=== PATIENT | male | born 1960 | race Caucasian/White ===

== ENCOUNTER → 2019-05-02 09:44 | Outpatient (CLI) | payer BC, SELFPAY ==
--- NOTE | ~2019-05-02 | XR_ITS ---
EXAMINATION: XR lumbar spine 6V w bending DATE: 05/02/2019 10:24 INDICATION: Low back pain TECHNIQUE: Anteroposterior, lateral in neutral, flexion and extension, and bilateral oblique views of the lumbar spine, and cone-down lateral view of the lumbosacral junction were obtained. COMPARISON: None. FINDINGS: There is no fracture. The vertebral body heights and alignment are normal. No laxity is pre sent with flexion or extension. There is mild loss of intervertebral disc space height in the lower l umbar spine. Small degenerative osteophytes project from the anterior endplates of multiple vertebral bodies. There is [id number] facet osteoarthritis of the lower lumbar spine. Surgical clips in the right upper quadrant are likely from prior cholecystectomy. IMPRESSION: 1. Mild lumbar spondylosis without acute findings. Reviewed, dictated and finalized at location A. 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
== END ==
PROVIDERS: PCP Physician Assistant; Visit Provider Physician Assistant
DX: M47.896 Other spondylosis, lumbar region (principal)
CPT/HCPCS: 72114

== ENCOUNTER 2019-08-15 10:22 | Outpatient (CLI) | payer BC, SELFPAY ==
[2019-08-15 10:40] LABS: Hematocrit 58.3 % (42.0-52.0); Hemoglobin 19.7 g/dL (14.0-18.0); Mean Corpuscular HGB Conc 33.8 g/dl (32-36); Mean Corpuscular Hemoglobin 30.6 pg (26-34); Mean Corpuscular Volume 90.7 fl (80-100); Mean Platelet Volume 10.1 fl (7.4-10.4); Platelet Count Result 196 k/mm3 (150-375); Red Blood Count 6.43 M/mm3 (4.6-6.20); Red Cell Distribution Width 12.6 % (11.5-14.5); White Blood Count 5.4 K/mm3 (4.5-10.0)
[2019-08-15 11:50] LABS: Alanine Aminotransferase 74 U/L (4-50); Albumin Level 4.7 g/dL (3.5-5.1); Alkaline Phosphatase 66 U/L (38-126); Aspartate Amino Transferase 69 U/L (17-59); Bilirubin,Total 0.7 mg/dL (0.2-1.3); Blood Urea Nitrogen 14 mg/dL (9-20); Calcium 9.4 mg/dL (8.4-10.2); Carbon Dioxide 32 mmol/L (22-30); Chloride 102 mmol/L (98-107); Cholesterol 218 mg/dL (0-200); Estimated Glomerular Filt Rate 48; Glucose 75 mg/dL (75-110); HDL Direct 35 mg/dL; Potassium 4.8 mmol/L (3.4-5.0); Sodium 140 mmol/L (137-145); Triglycerides 356 mg/dL (<150)
[2019-08-15 11:58] LABS: LDL Cholesterol Direct 51 mg/dL
[2019-08-15 12:18] LABS: Prostate Specific Antigen 1.7 ng/mL (< OR = 4.0)
[2019-08-18 12:07] LABS: Testosterone Total 146 ng/dL (250-1100)
== END 2019-08-15 10:23 | disposition home or self-care (01) ==
PROVIDERS: PCP Physician Assistant; Visit Provider Physician Assistant
DX: Z00.00 Encounter for general adult medical examination without abnormal findings (principal); E29.1 Testicular hypofunction; Z12.5 Encounter for screening for malignant neoplasm of prostate
CPT/HCPCS: 36415; 80053; 80061; 82607; 82746; 84153; 84402; 84403; 84443; 85027; G0103

== ENCOUNTER 2019-11-14 08:33 | Outpatient (CLI) | payer BC, SELFPAY ==
[2019-11-14 08:49] LABS: Hematocrit 53.4 % (42.0-52.0); Mean Corpuscular HGB Conc 33.7 g/dl (32-36); Mean Corpuscular Hemoglobin 30.9 pg (26-34); Mean Corpuscular Volume 91.6 fl (80-100); Mean Platelet Volume 10.1 fl (7.4-10.4); Platelet Count Result 175 k/mm3 (150-375); Red Blood Count 5.83 M/mm3 (4.6-6.20); Red Cell Distribution Width 14.2 % (11.5-14.5); White Blood Count 5.1 K/mm3 (4.5-10.0)
[2019-11-14 09:28] LABS: Iron 100 ug/dL (49-181)
[2019-11-14 09:37] LABS: Percent Iron Saturation 22 % (20-50)
== END 2019-11-14 08:34 | disposition home or self-care (01) ==
PROVIDERS: PCP Physician Assistant; Visit Provider Physician Assistant
DX: D58.2 Other hemoglobinopathies (principal)
CPT/HCPCS: 36415; 82728; 83540; 83550; 85027

== ENCOUNTER 2020-05-19 20:52 | Observation (INO) | payer BC, SELFPAY ==
--- NOTE | ~2020-05-19 | US_ITS ---
EXAMINATION: US renal BI DATE: 05/20/2020 10:59 INDICATION: Acute on chronic kidney injury TECHNIQUE: Multiple grayscale and Doppler ultrasound images of the kidneys were obtained. COMPARISON: None. FINDINGS: The right kidney measures 11.3 x 5.3 x 5.1 cm. The left kidney measures 13.6 x 6.4 x 6.0 cm . The kidneys demonstrate normal parenchymal echogenicity. There is moderate left hydronephrosis. The bladder is normal. IMPRESSION: 1. Moderate left hydronephrosis, consistent with known left ureteral stone. Reviewed, dictated and finalized at location A. ULTING GROUP ANALYST
--- NOTE | ~2020-05-19 | CT_ITS ---
EXAMINATION: CT abdomen pelvis wo con DATE: 05/19/2020 22:26 INDICATION: Left flank pain TECHNIQUE: Computed tomography (CT) of the abdomen and pelvis was performed without intravenous contr ast. The dose-length product (DLP) was 305.32 mGy-cm. Automated exposure control and iterative recons truction technique were employed. COMPARISON: 07/06/2015 FINDINGS: Minimal dependent atelectasis is present in the lung bases. The heart size is normal. The g allbladder is surgically absent. The liver is diffusely low in attenuation when compared with the spl een, consistent with hepatic steatosis. Punctate calcifications in an otherwise normal spleen likely represent healed granulomatous disease. The pancreas and adrenal glands are normal. There is a 5 mm s tone of the proximal left ureter which causes moderate hydronephrosis. There is a 2 mm nonobstructing stone of the left kidney. Cysts of the kidneys measure up to 3.5 cm on the left. No pathologically e nlarged abdominal or pelvic lymph nodes are identified. There is no free intraperitoneal gas or evide nce of bowel obstruction. Colonic diverticulosis is present without evidence of diverticulitis. A mod erate volume of colonic stool is present. There is mild lumbar spondylosis. IMPRESSION: 1. 5 mm stone in the proximal left ureter causing moderate hydronephrosis. 2. Nonobstructing left nephrolithiasis. Reviewed, dictated and finalized at location A. 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
--- NOTE | ~2020-05-19 | XR_ITS ---
EXAMINATION: XR abdomen/kub 1V EXAM DATE: 05/21/2020 08:42 INDICATION: Stone follow-up. TECHNIQUE: Frontal projection(s) of the abdomen for interpretation. Comparison is made to prior exami nation from 05/20/2020. FINDINGS: Previously suspected left ureteral stone now appears to be in an inferior calyx. This measu res about 6 mm. This finding has been indicated, marked on the examination for review, clinical corre lation. Left double-J ureteral stent is in position. Nonobstructive bowel gas pattern. IMPRESSION: Left inferior calyceal stone. Reviewed, dictated and finalized at location B. DAY DETECTOR OPERATOR
--- NOTE | ~2020-05-19 | XR_ITS ---
EXAMINATION: XR abdomen/kub 1V INDICATION: Left-sided kidney stones TECHNIQUE: Supine views of the abdomen were obtained on 2 radiographs. COMPARISON: CT, 03/18/2021 FINDINGS: There is a faint 5 mm calcification projecting just below the left L3 transverse process in the expected location of the ureteral stone described on the comparison CT. A phlebolith is noted in the right pelvis. A moderate volume of colonic stool is present. Cholecystectomy clips are noted. IMPRESSION: 1. Faint calcification projecting just below the left L3 transverse process possibly reflecting the k nown left proximal ureteral stone. Reviewed, dictated and finalized at location A. ING AIDE IMPRESSION: 1. Faint calcification projecting just below the left L3 transverse process pos sibly reflecting the known left proximal ureteral stone.
--- NOTE | ~2020-05-19 | XR_ITS ---
EXAMINATION: XR retrograde pyelo w/stent LT EXAM DATE: 05/20/2020 12:59 INDICATION: Left-sided stone extraction. TECHNIQUE: Fluoroscopy used during XR retrograde pyelo w/stent LT performed by Dr. Marco Hilario MD. The DAP for this procedure was 428 radcm2 Cine run(s) available for review. FINDINGS: Probable identification of left proximal ureteral stone on the line haul owner operator image. Left ureter was cannulated and injected. Mild left hydronephrosis. A double-J ureteral stent was positioned.. Possib le identification of the stone adjacent to the stent. Correlate with procedure note. IMPRESSION: Fluoroscopy used during XR retrograde pyelo w/stent LT. Reviewed, dictated and finalized at location A. MOTIVE PRODUCT SPECIALIST
[2020-05-19 20:56] VITALS: BP 132/80; PULSE 79; RESP 16; TEMP 37; O2SAT 98
--- NOTE | 2020-05-19 21:15 | PC.NURSE ---
pt states he isn't able to give urine sample at this time bc he went before he came. states he will attempt. urinal at bedside.
[2020-05-19 21:20] LABS: Basophils Percent Auto 0.3 % (0.2-1.2); Eosinophils Absolute Auto 0.3 K/mm3 (0-0.3); Eosinophils Percent Auto 2.6 % (0-4.4); Hematocrit 42.1 % (42.0-52.0); Hemoglobin 14.5 g/dL (14.0-18.0); Immature Granulocyte Absolute 0.04 K/mm3 (0.00-0.031); Immature Granulocyte Percent A 0.4 % (0-0.5); Lymphocytes Absolute Auto 1.23 K/mm3 (0.9-3.2); Lymphocytes Percent Auto 12.1 % (18.3-44.2); Mean Corpuscular HGB Conc 34.4 g/dl (32-36); Mean Corpuscular Hemoglobin 31.9 pg (26-34); Mean Corpuscular Volume 92.7 fl (80-100); Mean Platelet Volume 10.5 fl (7.4-10.4); Monocytes Percent Auto 9.6 % (2.6-8.5); Neutrophils Absolute Auto 7.6 K/mm3 (1.3-6.7); Platelet Count Result 171 k/mm3 (150-375); Red Blood Count 4.54 M/mm3 (4.6-6.20); Red Cell Distribution Width 12.1 % (11.5-14.5); White Blood Count 10.1 K/mm3 (4.5-10.0)
[2020-05-19 21:31] LABS: Anion Gap 7 mmol/L (8-16); Blood Urea Nitrogen 27 mg/dL (9-20); Calcium 8.7 mg/dL (8.4-10.2); Carbon Dioxide 25 mmol/L (22-30); Chloride 104 mmol/L (98-107); Estimated CRCL calculation 26 ml/min; Estimated Glomerular Filt Rate 21; Glucose 111 mg/dL (75-110); Potassium 4.3 mmol/L (3.4-5.0); Sodium 136 mmol/L (137-145)
[2020-05-19] MEDS: MORPHINE SULFATE (*CRX) 4 MG/ML INJ IV PUSH (21:35)
[2020-05-19] MEDS: ONDANSETRON INJ 4 MG/2 ML VIAL IV PUSH ×2 (21:35→23:28)
[2020-05-19] MEDS: SODIUM CHLORIDE 0.9% IV 1,000 ML 999 ML IV CONT ×2 (21:35→23:20)
[2020-05-19 21:37] VITALS: BP 115/75; PULSE 85; RESP 16; O2SAT 98
--- NOTE | 2020-05-19 22:00 | PC.NURSE ---
pt states he gets anxiety when getting CT, doctor gave this rn verbal order for 0.25mg ativan IV STAT
--- NOTE | 2020-05-19 22:02 | ED.GENADULT ---
HPI - General Adult General Chief complaint: Urogenital-Male Stated complaint: left flank pain Time Seen by Provider: 05/19/20 21:21 History of Present Illness HPI narrative: Patient 59-year-old gentleman who presents the emergency department with chief complaint of left flank pain. Patient states that he has history of kidney stones and has been able to pass them before in the past states that he started having flank pain several days ago and today it got worse. Patient states that this evening he was unable to tolerate the pain reports has had some nausea with it. Related Data Home Medications Medication Instructions Recorded Confirmed arginine (L-arginine) 500 mg tablet 3,150 mg PO DAILY tablet 08/23/19 ascorbic acid (vitamin C) 250 mg 250 mg PO BID 08/23/19 tablet doxycycline hyclate 100 mg capsule 100 mg PO DAILY 08/23/19 ginseng 500 mg tablet 1,500 mg PO tablet 08/23/19 glucosamine 750 mg-chondroitin 600 1 tablet PO BID 08/23/19 mg chewable tablet magnesium oxide 400 mg (241.3 mg 400 mg PO DAILY 08/23/19 magnesium) tablet multivitamin 1 cap PO DAILY 08/23/19 omega-3 fatty acids-fish oil 360 1 cap PO BID 08/23/19 mg-1,200 mg capsule Allergies Allergy/AdvReac Type Severity Reaction Status Date / Time No Known Allergies Allergy Verified 08/15/19 09:40 Review of Systems Review of Systems: Narrative: A 10 system review of systems was completed on the patient and is negative except for what is stated in the HPI. Nursing and ancillary documentation was reviewed. [facility] Family History Family History Father Family history of mental disorder Other Family history of cardiovascular disease Family history of malignant neoplasm Social History Social History Smoking status: Never smoker Second hand tobacco smoke exposure: No Alcohol intake: current Substance use: never Comments Patient has past medical history significant for anxiety and history of kidney stones Exam Narrative: Exam Narrative: GENERAL: Well-appearing, well-nourished, and in no acute distress. HEAD: Normocephalic, atraumatic. EYES: PERRLA and EOMI. ENT: Nares clear, no rhinorrhea or epistaxis. Mucous membranes moist. NECK: Supple. CHEST: Clear to auscultation. No respiratory distress. HEART: Regular rate and rhythm. No murmur heard. Normal peripheral pulses. ABDOMEN: Soft, nontender, nondistended, normal active bowel sounds. EXTREMITIES: Normal range of motion. No edema. SKIN: Warm, dry, no rash. NEURO: No focal deficits. Alert and oriented x3. PSYCH: Normal mood and affect. Course Vital Signs Vital signs: Vital Signs Temperature 37.0 C 05/19/20 20:56 Pulse Rate 79 05/19/20 20:56 Respiratory Rate 16 05/19/20 20:56 Blood Pressure 132/80 05/19/20 20:56 Pulse Oximetry 98 05/19/20 20:56 Temperature 37.0 C 05/19/20 20:56 Pulse Rate 85 05/19/20 22:52 Respiratory Rate 16 05/19/20 22:52 Blood Pressure 115/75 05/19/20 22:52 Pulse Oximetry 98 05/19/20 22:52 Medical Decision Making Vital Signs Vital Signs: Vital Signs Temperature 37.0 C 05/19/20 20:56 Pulse Rate 79 05/19/20 20:56 Respiratory Rate 16 05/19/20 20:56 Blood Pressure 132/80 05/19/20 20:56 Pulse Oximetry 98 05/19/20 20:56 Temperature 37.0 C 05/19/20 20:56 Pulse Rate 85 05/19/20 22:52 Respiratory Rate 16 05/19/20 22:52 Blood Pressure 115/75 05/19/20 22:52 Pulse Oximetry 98 05/19/20 22:52 Lab Data Result diagrams: 05/19/20 21:13 05/19/20 21:13 Labs: Lab Results 05/19/20 05/19/20 05/19/20 Range/Units 21:13 21:13 22:33 WBC 10.1 H (4.5-10.0) K/mm3 RBC 4.54 L (4.6-6.20) M/mm3 Hgb 14.5 D (14.0-18.0) g/dL Hct 42.1 (42.0-52.0) % MCV 92.7 (80-100) fl MCH 31.9 (26-34) pg MCHC 34.4
[2020-05-19] MEDS: LORazepam INJ (*CRX) 2 MG/ML VIAL 0.5 MG IV PUSH (22:09)
--- NOTE | 2020-05-19 22:10 | PC.NURSE ---
pt states he still isnt able to urinate. pt educated on importance of urine. pt refused straight cath
--- NOTE | 2020-05-19 22:17 | PC.NURSE ---
pt to ct at this time
[2020-05-19 22:44] LABS: Add Urine Microscopic? NO; Appearance Urine Clear (Clear); Bilirubin Urine Negative (Negative); Blood Urine Negative (Negative); Color Urine Yellow (Yellow); Glucose Urine UA Negative (Negative); Ketones Urine Negative (Negative); Leukocyte Esterase Ur Negative LEU/UL (Negative); Nitrate Urine Negative (Negative); Protein Urine Negative (Negative); Specific Grav Ur 1.014 (1.001-1.035); Urobilinogen Urine Negative mg/dL (<2.0)
[2020-05-19 22:52] VITALS: BP 115/75; PULSE 85; RESP 16; O2SAT 98
[2020-05-19] MEDS: HYDROmorphone HCL INJ (*CRX) 1 MG/ML SYR IV PUSH (23:28)
[2020-05-19 23:44] VITALS: BP 115/75; PULSE 85; RESP 16; O2SAT 98
--- NOTE | 2020-05-19 23:50 | ADMGEN ---
This patient, Sam Valdez, was admitted to Medical Room 341-01. Patient/family oriented to hospital policies and general routines including ID bracelet, bed and alarms, visiting hours, pain management, procedures, bathroom and other care routines, personal items, smoking policy, room service/diet, and visiting hours. Information on how to activate the Rapid Response Team has been discussed. Patient/Family are encouraged to report perceived risks to care and to ask questions if they do not understand what they are told or what they should do.
[2020-05-19 23:56] VITALS: BMI 27.6
[2020-05-20] VITALS (9 sets, daily range): BP systolic 102–160; BP diastolic 46–90; PULSE 61–77; RESP 12–14; TEMP 36.4–36.8; O2SAT 94–100; BMI 27.6
[2020-05-20] MEDS: SODIUM CHLORIDE 0.9% IV 1,000 ML 125 ML IV CONT ×2 (00:24→09:00)
[2020-05-20 06:09] LABS: Basophils Percent Auto 0.3 % (0.2-1.2); Eosinophils Absolute Auto 0.2 K/mm3 (0-0.3); Hematocrit 37.9 % (42.0-52.0); Hemoglobin 12.4 g/dL (14.0-18.0); Immature Granulocyte Absolute 0.02 K/mm3 (0.00-0.031); Immature Granulocyte Percent A 0.3 % (0-0.5); Lymphocytes Absolute Auto 1.52 K/mm3 (0.9-3.2); Lymphocytes Percent Auto 20.5 % (18.3-44.2); Mean Corpuscular HGB Conc 32.7 g/dl (32-36); Mean Corpuscular Hemoglobin 31.2 pg (26-34); Mean Corpuscular Volume 95.5 fl (80-100); Monocytes Absolute Auto 0.7 K/mm3 (0.1-0.6); Monocytes Percent Auto 9.7 % (2.6-8.5); Neutrophils Percent Auto 67.2 % (45.5-73.1); Platelet Count Result 150 k/mm3 (150-375); Red Blood Count 3.97 M/mm3 (4.6-6.20); Red Cell Distribution Width 12.1 % (11.5-14.5); White Blood Count 7.4 K/mm3 (4.5-10.0)
[2020-05-20 06:22] LABS: Anion Gap 5 mmol/L (8-16); Blood Urea Nitrogen 27 mg/dL (9-20); Calcium 7.7 mg/dL (8.4-10.2); Carbon Dioxide 25 mmol/L (22-30); Chloride 108 mmol/L (98-107); Estimated CRCL calculation 30 ml/min; Estimated Glomerular Filt Rate 25; Glucose 100 mg/dL (75-110); Potassium 4.4 mmol/L (3.4-5.0); Sodium 138 mmol/L (137-145)
--- NOTE | 2020-05-20 08:17 | PM.IMHP ---
H&P: HPI History of Present Illness Date/Time: 05/20/20 05:17 Chief Complaint: I think I have a kidney stone Narrative: Sam Valdez is a 59 year old male with a past medical history, BPH and chronic kidney disease stage 3 who presented to the ER with left-sided flank pain. The patient reported that he the believes that he has another kidney stone. His last kidney stone was many years ago. He reports that he only drinks 2 bottles of water a day while he is at work. He reports that he has been having colicky left flank pain that has been intermittent for the last 4 days. His pain became so severe on Thursday that he dropped to his knees. At that time he decided to come into the ER for evaluation. He also reports having a temperature up to 101 over the last couple of days. He has been having some nausea but denies any vomiting. He has had decreased appetite. He has not noticed any changes in urinary frequency or urgency. He reports that he has not had any pain since he arrived to the medical floor around midnight. He thinks that he may have passed his kidney stone. He had gotten up to urinate a couple of times on his own and did not know he needed to strain his urine. He denies a history chronic kidney disease but upon review of prior labs the patient has had an elevated creatinine as far back as 2018. He does admit to having low testosterone and states that he stop taking testosterone supplements as it was causing him to have a elevated hemoglobin and it was not improving his fatigue symptoms he is still having daytime somnolence and fatigue. He does snore but has never been told that he stops breathing. He has never had a sleep study. Review of Systems Review of Systems: Narrative: 12 systems were reviewed with pertinent positives and negatives per HPI. Except as documented in the HPI, all other systems were reviewed and are negative. 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 He is not . His elderly parents live with him but her relatively healthy. He drinks alcohol only in moderation. He denies any tobacco or illicit substance use. Primary care provider: George Saenz NP Smoking status: Never smoker Second hand tobacco smoke exposure: No Alcohol intake: current Drinks per week: 1 Substance use: never Living arrangements: with family Occupation/Education: occupation Gender identity (if verbalized by the patient): Male Spiritual care concerns: No Meds Home Medications and Allergies Home Medications Medication Instructions Recorded Confirmed Type ascorbic acid (vitamin C) 250 mg 250 mg PO BID 08/23/19 05/19/20 History tablet glucosamine 750 mg-chondroitin 600 1 tablet PO BID 08/23/19 05/20/20 History mg chewable tablet multivitamin 1 cap PO DAILY 08/23/19 05/20/20 History omega-3 fatty acids-fish oil 360 1 cap PO BID 08/23/19 05/20/20 History mg-1,200 mg capsule tadalafil 5 mg tablet 5 mg PO DAILY PRN #90 tablet 12/14/19 05/20/20 Rx omeprazole 20 mg capsule,delayed 20 mg PO DAILY #90 cap 03/28/20 05/20/20 Rx release fenofibrate 160 mg tablet 160 mg PO DAILY #90 tablet 05/05/20 05/19/20 Rx tamsulosin 0.4 mg capsule 0.4 mg PO DAILY #90 cap 05/05/20 05/20/20 Rx dorzolamide-timolol 1 drp EACH EYE BID 05/19/20 05/20/20 History escitalopram oxalate 1
--- NOTE | 2020-05-20 11:12 | WPDURCON ---
Assessment and Plan Assessment and plan (1) Acute kidney injury superimposed on chronic kidney disease: Code(s): N17.9 - Acute kidney failure, unspecified; N18.9 - Chronic kidney disease, unspecified Status: Acute Assessment and Plan: Creatinine will need to be monitored after stent placement (2) Ureterolithiasis: Code(s): N20.1 - Calculus of ureter Status: Acute Assessment and Plan: Will be taken to the operating room today for cystoscopy with left stent placement. He understands risks of bleeding, infection, inability to place the stent. I feel this is necessary due to his elevated creatinine. Definitive stone management to follow. (3) Hydronephrosis of left kidney: Code(s): N13.30 - Unspecified hydronephrosis Status: Acute Urology Consult Note HPI Date Seen: 05/20/20 Requesting Physician: Mery Culp PA-C Primary Care Provider: George Saenz PA-C Consult Narrative Narrative: Sam Valdez is a 59 year old male who is a patient of my partner Dr. Salguero. He has a prior history of stone disease. This was several years ago and it passed on its own. Since Thursday he has had a left intermittent flank pain. He has not had nausea or vomiting. He has not had dysuria. He has no symptoms of urinary tract infection. He states on and a temperature 101? but this has not recurred since. A CT scan was performed here in the [place] [facility] last night. There is no official reading. I viewed myself. It shows some moderate left hydronephrosis with a mid to proximal ureteral stone. It looks to be about 6 mm. He has an elevated creatinine. He will be taken to the operating room today for a cystoscopy with left ureteral stent with definitive stone management to follow. He has just had a KUB and the stone is visible. Review of Systems Review of Systems: All systems reviewed & are unremarkable except as noted in HPI and below PMFSH Past Medical History Medical History (Updated 05/20/20 @ 11:26 by Marco Hilario MD) Hypercholesteremia Kidney stone Low testosterone in male Surgical History Surgical History (Updated 05/20/20 @ 08:21 by Lorin Haney DO) Hx of cholecystectomy Family History Family History Father Family history of mental disorder Grandparent Cerebrovascular accident Other Family history of cardiovascular disease Family history of malignant neoplasm Social History Social History (Updated 05/20/20 @ 08:19 by Lorin Haney DO) Social History: 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 He is not . His elderly parents live with him but her relatively healthy. He drinks alcohol only in moderation. He denies any tobacco or illicit substance use. Primary care provider: George Saenz NP Smoking status: Never smoker Second hand tobacco smoke exposure: No Alcohol intake: current Drinks per week: 1 Substance use: never Living arrangements: with family Occupation/Education: occupation Gender identity (if verbalized by the patient): Male Spiritual care concerns: No Meds Home Medications and Allergies Home Medications Medication Instructions Recorded Confirmed Type ascorbic acid (vitamin C) 250 mg 250 mg PO BID 08/23/19 05/19/20 History tablet glucosamine 750 mg-chondroitin 600 1 tablet PO BID 08/23/19 05/20/20 History mg chewable tablet multivitamin 1 cap PO DAILY 08/23/19 05/20/20 History omega-3 fatty acids-fish oil 360 1 cap PO BID 08/23/19 05/20/20 History mg-1,200 mg capsule tadalafil 5 mg tablet 5 mg PO DAILY PRN #90 tablet 12/14/19 05/20/20 Rx omeprazole 20 mg capsule,delayed 20 mg PO DAILY #90 cap 03/28/20 05/20/20 Rx release fenofibrate 160 mg tablet 160 mg PO DAILY #90 tablet 05/05/20 05/19/20 Rx tamsulosin 0.4 mg capsule 0.4 mg PO DAILY #90 cap 05/05/20 05/20/20 Rx dorzolamide-timolol 1 drp E
--- NOTE | 2020-05-20 11:49 | WPDANESEPP ---
Anes - Eval Pre Procedure Date/Time: 05/20/20 11:49 Pre Op Diagnosis: Acute kidney injury, ureterolithiasis Patient Data Age: 59 Gender: M Height: 6 ft Weight: 92.6 kg Last Vital Signs Temp 36.8 C 05/20/20 05:27 Pulse 62 05/20/20 05:27 Resp 12 05/20/20 05:27 BP 102/46 L 05/20/20 05:27 Pulse Ox 94 05/20/20 07:31 Allergies Allergy/AdvReac Type Severity Reaction Status Date / Time No Known Allergies Allergy Verified 05/19/20 23:54 Home Medications Medication Instructions Recorded Confirmed Type ascorbic acid (vitamin C) 250 mg 250 mg PO BID 08/23/19 05/19/20 History tablet glucosamine 750 mg-chondroitin 600 1 tablet PO BID 08/23/19 05/20/20 History mg chewable tablet multivitamin 1 cap PO DAILY 08/23/19 05/20/20 History omega-3 fatty acids-fish oil 360 1 cap PO BID 08/23/19 05/20/20 History mg-1,200 mg capsule tadalafil 5 mg tablet 5 mg PO DAILY PRN #90 tablet 12/14/19 05/20/20 Rx omeprazole 20 mg capsule,delayed 20 mg PO DAILY #90 cap 03/28/20 05/20/20 Rx release fenofibrate 160 mg tablet 160 mg PO DAILY #90 tablet 05/05/20 05/19/20 Rx tamsulosin 0.4 mg capsule 0.4 mg PO DAILY #90 cap 05/05/20 05/20/20 Rx dorzolamide-timolol 1 drp EACH EYE BID 05/19/20 05/20/20 History escitalopram oxalate 10 mg PO DAILY 05/20/20 05/19/20 History pravastatin 40 mg PO HS 05/20/20 05/20/20 History Laboratory Tests 05/19/20 05/19/20 05/19/20 21:13 21:13 22:33 WBC 10.1 K/mm3 H K/mm3 (4.5-10.0) RBC 4.54 M/mm3 L M/mm3 (4.6-6.20) Hgb 14.5 g/dL D g/dL (14.0-18.0) Hct 42.1 % % (42.0-52.0) MCV 92.7 fl fl (80-100) MCH 31.9 pg pg (26-34) MCHC 34.4 g/dl g/dl (32-36) RDW 12.1 % % (11.5-14.5) Plt Count 171 k/mm3 k/mm3 (150-375) MPV 10.5 fl H fl (7.4-10.4) Immature Gran % (Auto) 0.4 % % (0-0.5) Neut % (Auto) 75.0 % H % (45.5-73.1) Lymph % (Auto) 12.1 % L % (18.3-44.2) Evangeline % (Auto) 9.6 % H % (2.6-8.5) Eos % (Auto) 2.6 % % (0-4.4) Baso % (Auto) 0.3 % % (0.2-1.2) Lymph # (Auto) 1.23 K/mm3 K/mm3 (0.9-3.2) Evangeline # (Auto) 1.0 K/mm3 H K/mm3 (0.1-0.6) Eos # (Auto) 0.3 K/mm3 K/mm3 (0-0.3) Baso # (Auto) 0.0 K/mm3 K/mm3 (0.0-0.1) Abs Immat Gran (auto) 0.04 K/mm3 H K/mm3 (0.00-0.031) Absolute Neuts (auto) 7.6 K/mm3 H K/mm3 (1.3-6.7) Absolute Nucleated RBC 0.0 K/mm3 K/mm3 (0.0-0.012) Nucleated RBC % 0.0 % % (0.0-0.2) Sodium 136 mmol/L L mmol/L (137-145) Potassium 4.3 mmol/L mmol/L (3.4-5.0) Chloride 104 mmol/L mmol/L (98-107) Carbon Dioxide 25 mmol/L mmol/L (22-30) Anion Gap 7 mmol/L L mmol/L (8-16) BUN 27 mg/dL H D mg/dL (9-20) Creatinine 3.00 mg/dL H mg/dL (0.7-1.3) Estim Creat Clear Calc 26 ml/min ml/min Estimated GFR 21 L (59 - ) Glucose 111 mg/dL H mg/dL (75-110) Calcium 8.7 mg/dL mg/dL (8.4-10.2) Urine Color Yellow (Yellow) Urine Appearance Clear (Clear) Urine pH 6.0 (5.0-9.0) Ur Specific Kirksey 1.014 (1.001-1.035) Urine Protein Negative mg/dL mg/dL (Negative) Urine Glucose (UA) Negative mg/dL mg/dL (Negative) Urine Ketones Negative mg/dL mg/dL (Negative) Ur Blood (Man) Negative (Negative) Urine Nitrate Negative (Negative) Urine Bilirubin Negative (Negative) Urine Urobilinogen Negative mg/dL mg/dL (<2.0) Leukocyte Esterase Rfl Negative MALENA/UL MALENA/UL (Negative) 05/20/20 05/20/20 05:17 05:17 WBC 7.4 K/mm3 K/mm3 (4.5-10.0) RBC 3.97 M/mm3 L M/mm3 (4.6-6.20) Hgb 12.4 g/dL L g/dL (14.0-18.0) Hct 37.9 % L % (42.0-52.0)
[2020-05-20] MEDS: LIDOCAINE HCL 2% GEL UROJET 10 ML PKG MUCOUS MEM (12:02)
[2020-05-20] MEDS: ceFAZolin 2 GM/D5W 50 ML 2 GM/50 ML BAG IVPB (12:25)
[2020-05-20] MEDS: LACTATED RINGERS 1,000 ML 30 ML IV CONT (12:30)
--- NOTE | 2020-05-20 12:32 | WPDANESEFPP ---
Anes - Eval Final PreProcedure Day of Procedure 05/20/20 12:32 Patient weight: overweight Lungs: clear to auscultation Airway: Mallampati scale class II Neurological: alert and oriented Last oral intake: >/= 8 hours ASA classification: II Emergent: yes Anesthetic plan: proceed Anesthesia type and monitoring: general LMA and standard monitoring Informed Consent: The patient's anesthetic plan and its attendant risks and benefits were discussed with the patient/family/POA. Questions were solicited and answers provided to the satisfaction of the patient/family/POA.
--- NOTE | 2020-05-20 12:55 | P.OP_ITS ---
Procedure Note - Detailed Date of procedure: 05/20/20 Pre-op diagnosis: Acute kidney injury, ureterolithiasis Post-op diagnosis: same Procedure performed: Cystoscopy, left retrograde pyelogram, left ureteral stent placement. Description of procedure: He was correctly identified. Informed consent obtained. From the operating room. He was given general anesthesia. He was prepped and draped in sterile fashion. Time-out performed. Cystoscopy revealed a normal appearing bladder. There is no significant trabeculations. I did a gentle retrograde pyelogram on the left. There is proximal hydronephrosis. Filling defect was outlined placed a guidewire to the upper pole kidney. I then placed a 4.8 variable length stent. Proximal coil in the kidney. Distal coil in the bladder. There appeared to be some cloudy urine come through the stent. This was sent for culture. His bladder was drained. He was awakened transferred to PACU in stable condition. Implants: 4.8 [place] variable length stent Anesthesia: GLMA Surgeon: Marco Hilario MD Estimated blood loss (mL): 0 Drains: Yes (Stent) Packing: No Pathology: none sent Complications: No immediate complications Condition: stable Disposition: PACU
--- NOTE | 2020-05-20 13:10 | PM.IMPN ---
Progress Note: A&P Assessment and Plan (1) Ureterolithiasis: Code(s): N20.1 - Calculus of ureter Status: Acute Assessment and Plan: CT abdomen/pelvis showed 5 mm stone in the proximal left ureter causing moderate hydronephrosis. Urine blood was negative. His pain has improved. No nausea/vomiting. He denies hematuria. Urology following. Planning for cystoscopy with left ureteral stent placement today. He will need outpatient Urology follow-up with definitive stone management down the line. NPO prior to procedure. Advance diet following continue gentle IV fluids analgesics available as needed for pain (2) Acute kidney injury superimposed on chronic kidney disease: Code(s): N17.9 - Acute kidney failure, unspecified; N18.9 - Chronic kidney disease, unspecified Status: Acute Assessment and Plan: Creatinine 3.0 on presentation. Baseline creatinine appears to be 1.5. This appears to be secondary to obstruction. creatinine improved to 2.6 today. Expect further improvement following stent placement. monitor renal function closely. Renally dose medications and avoid nephrotoxins. (3) Daytime somnolence: Code(s): R40.0 - Somnolence Status: Acute Assessment and Plan: He reports feeling fatigued and reports snoring. He has never had a sleep study. Patient would benefit from outpatient sleep study to rule out obstructive sleep apnea given his history of snoring and daytime somnolence. since he will be in the hospital [facility], we can do an apnea link while he is here. Subjective Date/time seen: 05/20/20 13:10 Interval history: Date of service: 05/20/2019 Sam valdez is a 59-year-old male with a history of hypercholesterolemia who is seen in follow-up for ureteral stone. His pain is improved today. he denies nausea or vomiting. He has been urinating and denies dysuria or hematuria. He is feeling very anxious for his procedure. He is eager to go home. He has no additional concerns at this time. Denies fever, chills, dizziness, lightheadedness, shortness breath, cough, chest pain, or palpitations. Review of Systems Review of Systems: All systems reviewed & are unremarkable except as noted in HPI and below Exam Narrative: Exam Narrative: Mr. Valdez is a well-nourished, well-appearing 59-year-old male who is lying supine in bed. He appears comfortable and is in NARD. HR 62, BP 102/46, RR 12, T 98.2?, 94% on room air Neuro: awake, alert and oriented x4, speech clear, no focal neuro deficits noted HEENMT: normocephalic, atraumatic, EOMI, sclerae anicteric, moist oral mucosa, tongue midline, nares patent Neck: supple, no lymphadenopathy Respiratory: clear to auscultation bilaterally, nonlabored breathing Cardio: regular rate, regular rhythm with S1-S2 Abdomen: nondistended, normoactive bowel sounds, soft, nontender to palpation, no rigidity or guarding Extremities: no edema, erythema, cyanosis, clubbing, or tenderness to palpation, DP pulses 2+ bilaterally Skin: no rashes or lesions, warm and dry Psych: appropriate mood and affect, judgment and insight intact Objective Data Vital Signs Vital Signs: Vital Signs - 24 hr 05/19/20 20:56 05/19/20 21:37 05/19/20 22:52 Temperature 98.6 F Pulse Rate 79 85 85 Respiratory Rate 16 16 16 Blood Pressure 132/80 115/75 115/75 Pulse Oximetry 98 98 98 05/19/20 23:44 05/20/20 05:27 05/20/20 07:31 Temperature 98.2 F Pulse Rate 85 62 Respiratory Rate 16 12 Blood Pressure 115/75 102/46 L Pulse Oximetry 98 97 94 Intake/Output Intake/Output: Intake & Output 05/17/20 05/18/20 05/19/20 05/20/20 23:59 23:59 23:59 23:59 Intake Total 1000 Output Total 300 Balance 700 Meds/Results Medications: Active Medications Generic Name Dose Route Start Last Admin Trade Name Freq PRN Reason Stop Dose Admin Fentanyl Citrate 25 mcg 05/20/20 12:33 Fentanyl Citrat
[2020-05-20] MEDS: HYDROcodone/acetaminophen (*CRX) 5-325 MG TABLET 1 TAB PO ×2 (14:50→21:57)
[2020-05-20] MEDS: PRAVASTATIN SODIUM 20 MG TABLET 40 MG PO (21:55)
[2020-05-20] MEDS: CIPROFLOXACIN 500 MG TAB PO (21:56)
--- NOTE | 2020-05-20 23:25 | PCRCNOTE ---
pt refuses to have sleep study
[2020-05-21 05:25] VITALS: BP 106/61; PULSE 58; RESP 14; TEMP 36.6; O2SAT 99
[2020-05-21 05:43] LABS: Hematocrit 37.4 % (42.0-52.0); Hemoglobin 12.6 g/dL (14.0-18.0); Mean Corpuscular HGB Conc 33.7 g/dl (32-36); Mean Corpuscular Hemoglobin 31.5 pg (26-34); Mean Corpuscular Volume 93.5 fl (80-100); Mean Platelet Volume 10.4 fl (7.4-10.4); Platelet Count Result 162 k/mm3 (150-375); Red Cell Distribution Width 11.9 % (11.5-14.5); White Blood Count 6.5 K/mm3 (4.5-10.0)
[2020-05-21 06:01] LABS: Anion Gap 8 mmol/L (8-16); Blood Urea Nitrogen 29 mg/dL (9-20); Calcium 8.3 mg/dL (8.4-10.2); Carbon Dioxide 22 mmol/L (22-30); Chloride 108 mmol/L (98-107); Estimated CRCL calculation 32 ml/min; Estimated Glomerular Filt Rate 26; Glucose 124 mg/dL (75-110); Potassium 4.7 mmol/L (3.4-5.0); Sodium 138 mmol/L (137-145)
--- NOTE | 2020-05-21 07:23 | WPDUROPN2 ---
Progress Note: A&P Assessment and Plan (1) Ureterolithiasis: Code(s): N20.1 - Calculus of ureter Status: Acute Assessment and Plan: Is stable for discharge from a urologic standpoint. We will call patient to arrange outpatient stone management. Will get a KUB today for planning (2) Acute kidney injury: Code(s): N17.9 - Acute kidney failure, unspecified Status: Acute Subjective Subjective Date/Time Seen: 05/21/20 07:23 He is tolerating the stent. Creatinine has improved some. Exam Const: General: cooperative and healthy appearing HENMT: Head: normal to inspection Resp: Effort & Inspection: normal respiratory effort and able to speak in complete sentences Skin: General skin exam: normal color Psych: Appearance: grossly normal Objective Data Vital Signs Vital Signs: Vital Signs - 24 hr 05/20/20 07:31 05/20/20 08:00 05/20/20 13:02 Temperature 97.6 F Pulse Rate 66 70 Respiratory Rate 12 14 Blood Pressure 120/73 Pulse Oximetry 94 98 97 05/20/20 13:15 05/20/20 13:30 05/20/20 13:45 Temperature Pulse Rate 72 66 61 Respiratory Rate 14 14 12 Blood Pressure 111/73 124/80 127/81 Pulse Oximetry 99 100 98 05/20/20 14:00 05/20/20 19:48 05/21/20 05:25 Temperature 98.2 F 97.8 F Pulse Rate 66 77 58 L Respiratory Rate 12 14 14 Blood Pressure 119/71 160/90 H 106/61 Pulse Oximetry 98 100 99 Intake/Output Intake/Output: Intake & Output 05/18/20 05/19/20 05/20/20 05/21/20 23:59 23:59 23:59 23:59 Intake Total 2840 500 Output Total 2300 1200 Balance 540 -700 Meds/Results Medications: Active Medications Generic Name Dose Route Start Last Admin Trade Name Freq PRN Reason Stop Dose Admin Hydrocodone Bitart/Acetaminophen 1 tab 05/20/20 14:11 05/20/20 21:57 Hydrocodone/Acetaminophen (*Crx) 5-325 Mg Tablet PO 1 tab Q4H PRN Administration Pain Rated 4-6 Ciprofloxacin 500 mg 05/20/20 21:00 05/20/20 21:56 Ciprofloxacin 500 Mg Tab PO 500 mg Q12HR LILI Administration Escitalopram Oxalate 10 mg 05/21/20 09:00 Escitalopram Oxalate 10 Mg Tablet PO DAILY [facility] Fenofibrate 160 mg 05/21/20 09:00 Fenofibrate 160 Mg Tablet PO DAILY [facility] Ondansetron HCl 4 mg 05/19/20 23:11 Ondansetron Inj 4 Mg/2 Ml Vial IV PUSH Q4H PRN Nausea Pantoprazole Sodium 40 mg 05/21/20 09:00 Pantoprazole 40 Mg Tablet PO QAM [facility] Pravastatin Sodium 40 mg 05/20/20 21:00 05/20/20 21:55 Pravastatin Sodium 20 Mg Tablet PO 40 mg HS [facility] Administration Tamsulosin HCl 0.4 mg 05/21/20 09:00 Tamsulosin Hcl 0.4 Mg Capsule PO DAILY [facility] Radiology Results: ITS Impressions Abdomen X-Ray 05/20/20 10:47 IMPRESSION: 1. Faint calcification projecting just below the left L3 transverse process possibly reflecting the known left proximal ureteral stone. Abdomen/Pelvis CT 05/20/20 11:00 IMPRESSION: 1. 5 mm stone in the proximal left ureter causing moderate hydronephrosis. 2. Nonobstructing left nephrolithiasis. Renal Ultrasound 05/20/20 14:41 IMPRESSION: 1. Moderate left hydronephrosis, consistent with known left ureteral stone. Retrograde Pyelogram 05/20/20 16:00 IMPRESSION: Fluoroscopy used during XR retrograde pyelo w/stent LT. Labs Labs: Laboratory Results - last 24 hr 05/21/20 05/21/20 05:26 05:26 WBC 6.5 RBC 4.00 L Hgb 12.6 L Hct 37.4 L MCV 93.5 MCH 31.5 MCHC 33.7 RDW 11.9 Plt Count 162 MPV 10.4 Sodium 138 Potassium 4.7 Chloride 108 H Carbon Dioxide 22 Anion Gap 8 BUN 29 H Creatinine 2.50 H Estim Creat Clear Calc 32 Estimated GFR 26 L Glucose 124 H Calcium 8.3 L Quality VTE Prophylaxis VTE prophylaxis: mechanical ordered
[2020-05-21] MEDS: TAMSULOSIN HCL 0.4 MG CAPSULE PO (08:51)
[2020-05-21] MEDS: ESCITALOPRAM OXALATE 10 MG TABLET PO (08:51)
[2020-05-21] MEDS: FENOFIBRATE 160 MG TABLET PO (08:51)
[2020-05-21] MEDS: PANTOPRAZOLE 40 MG TABLET PO (08:51)
[2020-05-21] MEDS: CIPROFLOXACIN 500 MG TAB PO (09:00)
--- NOTE | 2020-05-21 10:04 | WPDANESPN ---
Anes - Prog Note Post-Op Date/Time: 05/21/20 10:04 Cardiovascular status: normal Respiratory status: normal Airway patency: baseline Mental status: baseline Post-Op hydration status: normal Vital Signs: Last Vital Signs Temp 36.6 C 05/21/20 05:25 Pulse 58 L 05/21/20 05:25 Resp 14 05/21/20 05:25 BP 106/61 05/21/20 05:25 Pulse Ox 99 05/21/20 05:25 Pain Score (VAS): no complaints I/O: Intake & Output 05/20/20 05/21/20 05/21/20 23:59 07:59 15:59 Intake Total 1540 500 240 Output Total 2000 1200 Balance -460 -700 240 Laboratory Tests 05/21/20 05:26 05/21/20 05:26 05/21/20 05/21/20 05:26 05:26 WBC 6.5 RBC 4.00 L Hgb 12.6 L Hct 37.4 L MCV 93.5 MCH 31.5 MCHC 33.7 RDW 11.9 Plt Count 162 MPV 10.4 Sodium 138 Potassium 4.7 Chloride 108 H Carbon Dioxide 22 Anion Gap 8 BUN 29 H Creatinine 2.50 H Estim Creat Clear Calc 32 Estimated GFR 26 L Glucose 124 H Calcium 8.3 L Post-procedural complaints: none Patient Feedback: Patient satisfied with anesthetic care.
--- NOTE | 2020-05-21 12:44 | PM.DS ---
DS: Admitting Diagnosis Admitting Diagnosis Admitting Diagnosis: Ureterolithiasis DS: Discharge Diagnosis Discharge Diagnosis (1) Ureterolithiasis: Code(s): N20.1 - Calculus of ureter Status: Acute Assessment and Plan: CT abdomen/pelvis showed 5 mm stone in the proximal left ureter causing moderate hydronephrosis. Urine blood was negative. He was seen in consultation by Urology and underwent cystoscopy with left ureteral stent placement by Dr. Hilario on 05/20/2020. He tolerated the procedure well. His pain resolved. He will need to follow-up with urology as an outpatient for definitive stone management and stent removal. (2) Acute kidney injury superimposed on chronic kidney disease: Code(s): N17.9 - Acute kidney failure, unspecified; N18.9 - Chronic kidney disease, unspecified Status: Acute Assessment and Plan: Creatinine 3.0 on presentation. Baseline creatinine appears to be 1.5. This is most likely secondary to obstruction from ureteral stone. Showed moderate left hydronephrosis consistent with left ureteral stone. He was rehydrated with IV fluids. Was 2.5 at time of discharge. He will need a repeat BMP in 1 week to monitor progression. Follow-up with PCP. (3) Daytime somnolence: Code(s): R40.0 - Somnolence Status: Acute Assessment and Plan: He reports feeling fatigued during the day and reports snoring. He has never had a sleep study. Apnea link was ordered while inpatient, however patient refused. Discussed with him that he will benefit from outpatient sleep study to evaluate for obstructive sleep apnea. DS: Summary Hospital Course Reason for hospitalization: Flank pain Hospital Course: Date of admission: 05/19/2020 Date of discharge: 05/21/2020 Sam valdez is a 59-year-old male with a history of nephrolithiasis and hypercholesterolemia who presented to the emergency department on 05/19/2020 with complaints of left flank pain ongoing for several days that progressively worsened, as well as associated nausea. Upon presentation to the emergency department, his vital signs were stable, CBC unremarkable, BUN and creatinine elevated with additional electrolytes stable, and CT abdomen/pelvis demonstrated 5 mm stone in the proximal left ureter causing moderate hydronephrosis as well as nonobstructing left nephrolithiasis. He was admitted to the hospitalist service for further evaluation and management and was seen in consultation by Urology. Please see above for further details. He underwent stent placement and his pain resolved. Renal function improved and he will obtain repeat labs in 1 week for further monitoring. He will follow-up urology for definitive stone management. He began feeling much better and requested discharge home. Given his overall improvement, he was determined to no longer require inpatient care and felt to be stable for discharge. We discussed worrisome signs and symptoms for which to return and he was educated on his medications. He was discharged in hemodynamically stable condition on 05/21/2020. Status at Discharge Functional status at discharge: independent ambulation Overall status at discharge: patient is back to baseline Time Spent with Patient Time attestation: Total time spent providing and/or coordinating discharge services: 45 minutes Time spent: Greater than 30 minutes Exam Narrative: Exam Narrative: Mr. Valdez is a well-nourished, well-appearing 59-year-old male who is lying supine in bed. He appears comfortable and is in NARD. HR 58, BP 106/61, R 14, T 97.8?, 99% on room air Neuro: awake, alert and oriented x4, speech clear, no focal neuro deficits noted HEENMT: normocephalic, atraumatic, EOMI, sclerae anicteric, moist oral mucosa, tongue midline, nares patent Neck: supple, no lymphadenopathy Respiratory: clear to auscultation bilaterally, nonlabored breathing Cardio: regular rate, regular rhythm with S1-S2
== END 2020-05-21 13:35 | disposition home or self-care (01) ==
LOC: ANHED 23:20 → ANH3MED 23:24
PROVIDERS: Emergency Medicine; Urology; Admitting Provider Internal Medicine; Emergency Provider Emergency Medicine; PCP Physician Assistant; Visit Provider Physician Assistant
PROC: (CPT 52352; principal; 2020-05-20 12:00)
DX: N13.2 Hydronephrosis with renal and ureteral calculous obstruction (principal); N17.9 Acute kidney failure, unspecified; R40.0 Somnolence; N18.30 Chronic kidney disease, stage 3 unspecified; N40.0 Benign prostatic hyperplasia without lower urinary tract symptoms; E78.00 Pure hypercholesterolemia, unspecified
CPT/HCPCS: 52332; 36415; 74018; 74176; 74420; 76775; 80048; 81003; 85025; 85027; 87086; 96361; 96374; 96375; 96376; 99285; A9270; C1758; C1769; C2617; G0378; J0690; J1170; J2060; J2250; J2270; J2405; J2704; J3010; J7030; J7120

== ENCOUNTER → 2020-05-22 03:17 | Outpatient (CLI) | payer BC, SELFPAY ==
[2020-05-22 20:35] LABS: SARS-CoV-2 RNA PCR Negative
== END ==
PROVIDERS: PCP Physician Assistant; Visit Provider Urology
DX: Z01.812 Encounter for preprocedural laboratory examination (principal); Z20.822 Contact with and (suspected) exposure to COVID-19
CPT/HCPCS: C9803; U0003; U0005

== ENCOUNTER 2020-05-22 13:18 | Outpatient (CLI) | payer BC, SELFPAY ==
--- NOTE | 2020-05-22 13:24 | ECG_ITS ---
Measurements Intervals [place] Rate: 57 P: 64 SD: 165 QRS: 26 QRSD: 76 T: 23 QT: 374 QTc: 365 Interpretive Statements SINUS BRADYCARDIA BASELINE ARTIFACT- I, III, AVR, AVL, AVF BORDERLINE ECG Electronically Signed On 05-22-2020 13:54:39 [employer]HS SURGEON by Golden Sutherland D.O.
== END 2020-05-22 13:19 | disposition home or self-care (01) ==
PROVIDERS: PCP Physician Assistant; Visit Provider Urology
DX: Z01.812 Encounter for preprocedural laboratory examination (principal); N20.0 Calculus of kidney; E78.00 Pure hypercholesterolemia, unspecified; R94.31 Abnormal electrocardiogram [ECG] [EKG]
CPT/HCPCS: 36415; 87086; 93005

== ENCOUNTER 2020-05-25 01:06 | Day surgery (SDC) | payer BC, SELFPAY ==
[2020-05-21 15:45] VITALS: BMI 26.4
[2020-05-25] VITALS (7 sets, daily range): BP systolic 98–123; BP diastolic 59–96; PULSE 56–75; RESP 10–16; TEMP 36.4–36.7; O2SAT 96–99
--- NOTE | ~2020-05-25 | XR_ITS ---
EXAMINATION: XR abdomen/kub 1V EXAM DATE: 05/25/2020 07:36 INDICATION: For lithotripsy. TECHNIQUE: Frontal projection(s) of the abdomen for interpretation. Comparison is made to prior exami nation from 05/21/2020 FINDINGS: Again there is approximately 6 mm stone projecting over lower pole left kidney. A left orly ble-J ureteral stent is in position.. Cholecystectomy clips. Expected amount of colonic stool. No sma ll bowel dilation. Mild bony degenerative changes. IMPRESSION: Left nephrolithiasis. Stent in position. Reviewed, dictated and finalized at location B. S PROCESSOR
--- NOTE | 2020-05-25 07:01 | WPDHPUPDATE1 ---
History and Physical Update Update Date/Time: 05/25/20 07:01 History and Physical has been reviewed, including an updated exam of the patient. There are NO changes in the patient's condition. Risks, benefits, and alternatives have been discussed and questions answered. Patient agrees to proceed with procedure.
[2020-05-25] MEDS: LACTATED RINGERS 1,000 ML 30 ML IV CONT (08:04)
[2020-05-25 08:21] LABS: Prothrombin Time 13.6 Seconds (11.1-14.7)
[2020-05-25 08:22] LABS: Partial Thromboplastin Time 26.9 SECONDS (22.3-36.8)
--- NOTE | 2020-05-25 08:45 | WPDANESEPPF ---
Anes - Initial Pre Proc Eval Procedure: Operation Date: 05/25/20 09:30 Proposed Procedures p Left Renal Extracorporeal Shock Wave Lithotripsy - Keith Brenner MD Date/Time: 05/25/20 08:45 Surgeon: Keith Brenner MD Pre Op Diagnosis: Renal Kidney Stone Patient Data Age: 59 Gender: M Height: 1.83 m Weight: 88.5 kg Last Vital Signs Temp 36.4 C 05/25/20 08:07 Pulse 56 L 05/25/20 08:07 Resp 16 05/25/20 08:07 BP 116/69 05/25/20 08:07 Pulse Ox 99 05/25/20 08:07 Allergies Allergy/AdvReac Type Severity Reaction Status Date / Time No Known Allergies Allergy Verified 05/25/20 07:39 Home Medications Medication Instructions Recorded Confirmed Type ascorbic acid (vitamin C) 250 mg 250 mg PO HS 08/23/19 05/25/20 History tablet glucosamine 750 mg-chondroitin 600 2 tablet PO QAM 08/23/19 05/25/20 History mg chewable tablet multivitamin 1 cap PO DAILY 08/23/19 05/25/20 History omega-3 fatty acids-fish oil 360 2 cap PO BID 08/23/19 05/25/20 History mg-1,200 mg capsule tadalafil 5 mg tablet 5 mg PO DAILY PRN #90 tablet 12/14/19 05/25/20 Rx tamsulosin 0.4 mg capsule 0.4 mg PO DAILY #90 cap 05/05/20 05/25/20 Rx dorzolamide-timolol 1 drp EACH EYE BID 05/19/20 05/25/20 History escitalopram oxalate 10 mg PO HS 05/20/20 05/25/20 History pravastatin 40 mg PO HS 05/20/20 05/25/20 History fenofibrate 160 mg PO HS 05/21/20 05/25/20 History minocycline 100 mg PO DAILY 05/21/20 05/25/20 History omeprazole 20 mg PO PRN PRN 05/21/20 05/21/20 History Laboratory Tests 05/25/20 07:58 PT 13.6 Seconds Seconds (11.1-14.7) INR 1.0 APTT 26.9 SECONDS SECONDS (22.3-36.8) Patient hx anesthesia problems: none Family hx anesthesia problems: none PMFSH Past Medical History Medical History (Updated 05/25/20 @ 08:45 by Kehinde Thorne DO) Anxiety GERD (gastroesophageal reflux disease) Hypercholesteremia Kidney stone Low testosterone in male Surgical History Surgical History (Updated 05/20/20 @ 08:21 by Lorin Haney DO) Hx of cholecystectomy Family History Family History Father Family history of mental disorder Grandparent Cerebrovascular accident Other Family history of cardiovascular disease Family history of malignant neoplasm Social History Social History (Updated 05/20/20 @ 08:19 by Lorin Haney DO) Social History: 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 He is not . His elderly parents live with him but her relatively healthy. He drinks alcohol only in moderation. He denies any tobacco or illicit substance use. Primary care provider: George Saenz NP Smoking status: Never smoker Second hand tobacco smoke exposure: No Alcohol intake: current Drinks per week: 1 Substance use: never Living arrangements: with family Gender identity (if verbalized by the patient): Male Spiritual care concerns: No Anes - Eval Final PreProcedure Day of Procedure 05/25/20 08:45 Patient weight: overweight Heart: regular rate and rhythm Lungs: clear to auscultation and normal air movement Airway: Mallampati scale class II Neurological: alert and oriented Last oral intake: >/= 8 hours ASA classification: II Emergent: no Anesthetic plan: proceed Anesthesia type and monitoring: general LMA and standard monitoring Informed Consent: The patient's anesthetic plan and its attendant risks and benefits were discussed with the patient/family/POA. Questions were solicited and answers provided to the satisfaction of the patient/family/POA.
[2020-05-25] MEDS: ceFAZolin 2 GM/D5W 50 ML 2 GM/50 ML BAG IVPB (09:08)
--- NOTE | 2020-05-25 09:54 | PM.PROC ---
Procedure Note - Detailed Date of procedure: 05/25/20 Pre-op diagnosis: Renal Kidney Stone Post-op diagnosis: same Procedure performed: 1. Cystosocpy, left stent removal 2. Left ESWL Description of procedure: The patient was brought to the operative suite where he was placed in the supine position on the Dornier lithotripter table. Flexible cystoscopy was undertaken with a 16F flexible cystoscopy. There were no urethral strictures. The prostatic urethra estimated length was 1.5cm. There was mild obstruction of the prostatic urethra with no median lobe enlargement. The bladder mucosa was normal and there was a single, orthotopic ureteral orifice bilaterally. The tip of the indwelling stent is grasped and it is removed with ease. The patient was then repositioned in the supine position with the focal point of the lithotriptor on a 6mm left renall calculus. A total of 2500 shocks were delivered at a power setting of 4. There appeared to be good fragmentation of the stone. The patient tolerated the procedure well and was taken to the recovery room in good condition. Anesthesia: GLMA Surgeon: Keith Brenner MD Estimated blood loss (mL): 0 Drains: No Packing: No Pathology: none sent Complications: No immediate complications Condition: stable Disposition: PACU
== END 2020-05-25 11:32 | disposition home or self-care (01) ==
PROVIDERS: PCP Physician Assistant; Visit Provider Urology
PROC: (CPT 50590; principal; 2020-05-25 09:30)
DX: N13.2 Hydronephrosis with renal and ureteral calculous obstruction (principal); N17.9 Acute kidney failure, unspecified; F41.9 Anxiety disorder, unspecified; K21.9 Gastro-esophageal reflux disease without esophagitis; E78.00 Pure hypercholesterolemia, unspecified
CPT/HCPCS: 50590; 36415; 74018; 85610; 85730; A9270; J0690; J1100; J2250; J2270; J2405; J2704; J7030; J7120

== ENCOUNTER 2020-08-20 09:34 | Outpatient (CLI) | payer BC, SELFPAY ==
[2020-08-20 10:01] LABS: Hematocrit 47.6 % (42.0-52.0); Hemoglobin 15.9 g/dL (14.0-18.0); Mean Corpuscular HGB Conc 33.4 g/dl (32-36); Mean Corpuscular Hemoglobin 30.7 pg (26-34); Mean Corpuscular Volume 91.9 fl (80-100); Mean Platelet Volume 10.5 fl (7.4-10.4); Platelet Count Result 198 k/mm3 (150-375); Red Blood Count 5.18 M/mm3 (4.6-6.20); Red Cell Distribution Width 13.1 % (11.5-14.5); White Blood Count 9.5 K/mm3 (4.5-10.0)
[2020-08-20 10:11] LABS: Alanine Aminotransferase 36 U/L (4-50); Albumin Level 4.4 g/dL (3.5-5.1); Alkaline Phosphatase 53 U/L (38-126); Anion Gap 7 mmol/L (8-16); Aspartate Amino Transferase 27 U/L (17-59); Bilirubin,Total 0.6 mg/dL (0.2-1.3); Blood Urea Nitrogen 24 mg/dL (9-20); Calcium 9.6 mg/dL (8.4-10.2); Carbon Dioxide 27 mmol/L (22-30); Chloride 106 mmol/L (98-107); Cholesterol 195 mg/dL (0-200); Estimated Glomerular Filt Rate 52; Glucose 111 mg/dL (75-110); HDL Direct 55 mg/dL; Potassium 4.3 mmol/L (3.4-5.0); Sodium 140 mmol/L (137-145); Triglycerides 186 mg/dL (<150)
[2020-08-20 10:21] LABS: LDL Cholesterol Direct 37 mg/dL
[2020-08-20 11:22] LABS: Folic Acid > 20.0 ng/mL (2.76->20)
== END 2020-08-20 09:35 | disposition home or self-care (01) ==
LOC: ANHLAB 09:37
PROVIDERS: PCP Physician Assistant; Visit Provider Physician Assistant
DX: Z00.00 Encounter for general adult medical examination without abnormal findings (principal); Z12.5 Encounter for screening for malignant neoplasm of prostate
CPT/HCPCS: 36415; 80053; 80061; 82607; 82746; 84153; 84443; 85027; G0103

== ENCOUNTER 2021-05-13 14:18 | Outpatient (CLI) | payer BC, SELFPAY ==
[2021-05-13 14:45] LABS: Alanine Aminotransferase 54 U/L (4-50); Albumin Level 4.6 g/dL (3.5-5.1); Alkaline Phosphatase 66 U/L (38-126); Anion Gap 6 mmol/L (8-16); Aspartate Amino Transferase 47 U/L (17-59); Bilirubin,Total 0.6 mg/dL (0.2-1.3); Blood Urea Nitrogen 20 mg/dL (9-20); Calcium 9.8 mg/dL (8.4-10.2); Carbon Dioxide 28 mmol/L (22-30); Chloride 106 mmol/L (98-107); Estimated Glomerular Filt Rate 44; Glucose 103 mg/dL (65-110); Potassium 3.9 mmol/L (3.4-5.0); Sodium 140 mmol/L (137-145)
[2021-05-13 15:18] LABS: Free T4 Free Thyroxine 0.96 ng/mL (0.78-2.19)
== END 2021-05-13 14:19 | disposition home or self-care (01) ==
LOC: ANHLAB 14:19
PROVIDERS: PCP Physician Assistant; Visit Provider Physician Assistant
DX: N17.9 Acute kidney failure, unspecified (principal); N18.9 Chronic kidney disease, unspecified; E03.9 Hypothyroidism, unspecified
CPT/HCPCS: 36415; 80053; 84439; 84443

== ENCOUNTER 2021-08-22 09:32 | Outpatient (CLI) | payer BC, SELFPAY ==
[2021-08-22 11:02] LABS: Hematocrit 46.4 % (42.0-52.0); Hemoglobin 15.2 g/dL (14.0-18.0); Mean Corpuscular HGB Conc 32.8 g/dl (32-36); Mean Corpuscular Hemoglobin 30.6 pg (26-34); Mean Corpuscular Volume 93.4 fl (80-100); Mean Platelet Volume 11.2 fl (7.4-10.4); Platelet Count Result 168 k/mm3 (150-375); Red Blood Count 4.97 M/mm3 (4.6-6.20); Red Cell Distribution Width 12.9 % (11.5-14.5); White Blood Count 4.5 K/mm3 (4.5-10.0)
[2021-08-22 11:14] LABS: Alanine Aminotransferase 45 U/L (6-50); Albumin Level 4.6 g/dL (3.5-5.1); Alkaline Phosphatase 76 U/L (38-126); Anion Gap 8 mmol/L (8-16); Aspartate Amino Transferase 45 U/L (17-59); Bilirubin,Total 0.5 mg/dL (0.2-1.3); Blood Urea Nitrogen 22 mg/dL (9-20); Carbon Dioxide 25 mmol/L (22-30); Chloride 108 mmol/L (98-107); Cholesterol 231 mg/dL (0-200); Estimated Glomerular Filt Rate 44; Glucose 107 mg/dL (65-110); HDL Direct 38 mg/dL; Potassium 4.5 mmol/L (3.4-5.0); Sodium 141 mmol/L (137-145); Triglycerides 371 mg/dL (<150)
[2021-08-22 11:25] LABS: LDL Cholesterol Direct 33 mg/dL
[2021-08-22 11:58] LABS: Free T4 Free Thyroxine 1.13 ng/mL (0.78-2.19)
[2021-08-22 12:20] LABS: Folic Acid 16.1 ng/mL (2.76->20)
== END 2021-08-22 09:33 | disposition home or self-care (01) ==
LOC: ANHLAB 09:33
PROVIDERS: PCP Physician Assistant; Visit Provider Physician Assistant
DX: Z00.00 Encounter for general adult medical examination without abnormal findings (principal); Z12.5 Encounter for screening for malignant neoplasm of prostate; E03.9 Hypothyroidism, unspecified
CPT/HCPCS: 36415; 80053; 80061; 82607; 82746; 84153; 84439; 84443; 85027; G0103

== ENCOUNTER 2022-09-17 08:44 | Outpatient (CLI) | payer BC, SELFPAY ==
--- NOTE | ~2022-09-17 | MR_ITS ---
MRI of the lumbar spine Clinical History: Radiculopathy Technique: Axial T2-weighted images, and sagittal T1-weighted, T2-weighted, and T2 fat-sat images wer e acquired. Findings: There is no fracture or subluxation of the lumbar spine. Vertebral bodies maintain normal h eight and alignment. No suspicious bone marrow signal abnormality seen. At L1-L2, there is no disc bulge or herniation. There is minimal facet arthropathy. No central canal stenosis or neural foraminal narrowing. At L2-L3, there is no disc bulge or herniation. There is minimal facet arthropathy. No central canal stenosis or neural foraminal narrowing. At L3-L4, there is minimal disc bulge. Probable tiny annular fissure present. There is mild facet art hropathy. No central canal stenosis or neural foraminal narrowing. At L4-L5, diffuse disc bulge is present with probable simples mild right paracentral protrusion. Ther e is moderate facet arthropathy. There is moderate to severe central canal stenosis/thecal sac compre ssion. There is mild left neural foraminal narrowing. Right neural foramen preserved. At L5-S1, there is no disc bulge or herniation. There is advanced facet arthropathy. No central canal stenosis or neural foraminal narrowing. Paravertebral soft tissues are unremarkable. Impression: Advanced degenerative spondylosis at L4-L5, as detailed above. Additional mild degenerative changes, as above. Reviewed, dictated and finalized at [facility]. Impression: Advanced degenerative spondylosis at L4-L5, as detailed above. Additional mild degenerative changes, as above.
== END 2022-09-17 08:45 | disposition home or self-care (01) ==
PROVIDERS: PCP Physician Assistant; Visit Provider Neurological Surgery
DX: M47.26 Other spondylosis with radiculopathy, lumbar region (principal)
CPT/HCPCS: 72148

== ENCOUNTER 2022-10-23 11:15 | Outpatient (CLI) | payer BC, SELFPAY ==
--- NOTE | 2022-10-23 11:35 | ECG_ITS ---
Measurements Intervals [place] Rate: 55 P: 41 WI: 149 QRS: 44 QRSD: 79 T: 37 QT: 419 QTc: 401 Interpretive Statements SINUS BRADYCARDIA BORDERLINE ECG COMPARED TO ECG 05/22/2020 14:05:28 NO SIGNIFICANT CHANGES Electronically Signed On 10-23-2022 12:18:33 CDT by Golden Sutherland D.O.
[2022-10-23 11:54] LABS: Hematocrit 48.1 % (42.0-52.0); Hemoglobin 15.7 g/dL (14.0-18.0); Mean Corpuscular HGB Conc 32.6 g/dl (32-36); Mean Corpuscular Hemoglobin 29.9 pg (26-34); Mean Corpuscular Volume 91.6 fl (80-100); Mean Platelet Volume 10.6 fl (7.4-10.4); Platelet Count Result 183 k/mm3 (150-375); Red Blood Count 5.25 M/mm3 (4.6-6.20); Red Cell Distribution Width 12.9 % (11.5-14.5); White Blood Count 4.6 K/mm3 (4.5-10.0)
[2022-10-23 11:55] LABS: Appearance Urine Clear (Clear); Bilirubin Urine Negative (Negative); Blood Urine Negative (Negative); Color Urine Yellow (Yellow); Glucose Urine UA Negative (Negative); Ketones Urine Trace mg/dL (Negative); Leukocyte Esterase Ur Negative LEU/UL (Negative); Nitrate Urine Negative (Negative); Protein Urine Negative (Negative); Specific Grav Ur 1.024 (1.001-1.035); pH Urine 5.5 (5.0-9.0)
[2022-10-23 11:57] LABS: Add Urine Microscopic? NO
[2022-10-23 12:04] LABS: Anion Gap 12 mmol/L (8-16); Blood Urea Nitrogen 20 mg/dL (9-20); Calcium 9.6 mg/dL (8.4-10.2); Carbon Dioxide 25 mmol/L (22-30); Chloride 103 mmol/L (98-107); Estimated Glomerular Filt Rate 38; Glucose 96 mg/dL (65-110); Potassium 4.1 mmol/L (3.4-5.0); Prothrombin Time 13.5 Seconds (11.1-14.7); Sodium 140 mmol/L (137-145)
[2022-10-23 12:05] LABS: Partial Thromboplastin Time 26.7 SECONDS (22.3-36.8)
== END 2022-10-23 11:16 | disposition home or self-care (01) ==
LOC: ANHSURGERY 11:19
PROVIDERS: PCP Physician Assistant; Visit Provider Neurological Surgery
DX: M48.062 Spinal stenosis, lumbar region with neurogenic claudication (principal); E78.1 Pure hyperglyceridemia; Z01.818 Encounter for other preprocedural examination
CPT/HCPCS: 36415; 80048; 81003; 85027; 85610; 85730; 93005

== ENCOUNTER 2022-10-29 09:54 | Observation (INO) | payer BC, SELFPAY ==
[2022-10-21 08:09] VITALS: BMI 27.1
--- NOTE | 2022-10-21 08:15 | PC.NURSE ---
Report to the Outpatient Waiting Room, entrance under the green pavilion located off [facility], at time _0600_ on date _[id number]_. Planned Procedure Time: _0730_. Time changes happen often and if your time is changed the preop area will call you the afternoon before. - You and your visitor will be asked to self-screen and do not enter if you have any COVID symptoms. - A mask is optional within the hospital at this time. Patients may have clear liquids (water, carbonated beverages, clear teas, apple juice) until 3 hours prior to surgery with a maximum of 20 ounces. - No food from midnight until time of surgery Take the following medications with a SIP of water the morning of surgery: ___Levothyroxine, Escitalopram and eye drops. DO NOT STOP ANY OF YOUR OTHER PRESCRIPTION MEDICATIONS PRIOR TO SURGERY ?EXCEPT THE FOLLOWING Medications to discontinue per physician None Date to take last dose Please no make-up, nail arabic, hairspray, perfume, deodorant, or body powder the day of surgery. No jewelry (including any body piercings) or valuables the day of surgery, leave them at home. Please take a shower or bath the night before, or the morning of, surgery with an antibacterial soap. Wear comfortable, loose fitting clothing. - Jewelry must be removed prior to entering the operating room. Rings and piercings that are not removed may be cut off. - The hospital will not accept responsibility for valuables. - Please leave all valuables, including medications, at home the day of surgery. If you are going home after surgery, a licensed compactor driver must drive you home. - NO public transportation without another adult if you receive anesthesia. - We recommend that an adult stay with you for 24 hours following discharge. - We also recommend that you do not drive, make important decision, drink alcoholic beverages, or take any drugs that were not prescribed by your health care provider for at least 24 hours after your discharge time. Follow any additional instructions given to you from your surgeon. If you or anyone in your household have experienced Covid symptoms in the past week, please notify your surgeon or the nurse liaison at the phone number below for possible testing. Telephone instructions given to __Patient___and asked if any additional questions and then verbalized understanding. Patient advised to call surgeon office or pre surgery nurse liaison [phone] if any additional questions.
--- NOTE | 2022-10-28 14:40 | WPDANESEPPF ---
Anes - Initial Pre Proc Eval Procedure: Operation Date: 10/29/22 07:30 Proposed Procedures p L4-5 Laminectomy, Right L5-S1 Hemilaminectomy and Foraminotomy - Carolin Barillas MD Date/Time: 10/28/22 14:40 Surgeon: Carolin Barillas MD Pre Op Diagnosis: lumbar stenosis with neurogenic claudication Patient Data Age: 61 Gender: M Height: 1.83 m Weight: 90.9 kg Allergies Allergy/AdvReac Type Severity Reaction Status Date / Time No Known Allergies Allergy Verified 10/29/22 07:13 Home Medications Medication Instructions Recorded Confirmed Type dorzolamide 22.3 mg-timolol 6.8 1 drp EACH EYE BID 05/19/20 10/29/22 History mg/mL eye drops fenofibrate 160 mg tablet See Rx Instructions .Route 05/19/22 10/29/22 Rx .COMPLEX #90 tabs escitalopram oxalate 10 mg tablet 10 mg PO HS #90 tabs 08/12/22 10/29/22 Rx levothyroxine 75 mcg tablet 75 mcg PO DAILY #90 tabs 08/12/22 10/29/22 Rx pravastatin 40 mg tablet 40 mg PO HS #90 tabs 08/12/22 10/29/22 Rx Patient hx anesthesia problems: none Family hx anesthesia problems: none Results Review: All pre-operative results and documents have been reviewed as part of the pre-operative evaluation. [facility] Past Medical History Medical History Anxiety GERD (gastroesophageal reflux disease) Hypercholesteremia Kidney stone Low testosterone in male Surgical History Surgical History Hx of cholecystectomy Family History Family History Father Family history of mental disorder Grandparent Cerebrovascular accident Other Family history of cardiovascular disease Family history of malignant neoplasm Social History Social History (Updated 09/11/22 @ 09:55 by Lindsay Courtney MA) Social History: Sam is very confident filling out medical forms. In the last 12 months he has not received any assistance from an organization or program. 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 He is not . His elderly parents live with him but are relatively healthy. He drinks alcohol only in moderation. He denies any tobacco or illicit substance use. Smoking status: Never smoker Second hand tobacco smoke exposure: No Alcohol intake: current Drinks per week: 1 Substance use: never Lack of Transportation: No Lack of Food: Never True Current Housing: I Have Housing Concerned About Future Housing: No Difficulty Paying Gas/Electric Bills: No Difficulty Paying for Meds: No Currently Unemployed: No Education: Bachelor's Degree Difficulty w/ Childcare or Family Care: No Living arrangements: with family Occupation/Education: occupation Gender identity (if verbalized by the patient): Male Spiritual care concerns: No Anes - Eval Final PreProcedure Day of Procedure 10/28/22 14:40 Patient weight: normal Heart: regular rate and rhythm Lungs: clear to auscultation Airway: Mallampati scale class III (have glidescope availaabel) Neurological: alert and oriented Last oral intake: >/= 8 hours ASA classification: II Emergent: no Anesthetic plan: proceed Anesthesia type and monitoring: general ETT and standard monitoring Results Review: All pre-operative results and documents have been reviewed as part of the pre-operative evaluation. Informed Consent: The patient's anesthetic plan and its attendant risks and benefits were discussed with the patient/family/POA. Questions were solicited and answers provided to the satisfaction of the patient/family/POA.
[2022-10-29] VITALS (12 sets, daily range): BP systolic 115–149; BP diastolic 66–84; PULSE 62–98; RESP 12–20; TEMP 36.4–36.9; O2SAT 94–99
--- NOTE | ~2022-10-29 | XR_ITS ---
EXAMINATION: XR fluoroscopy no charge DATE: 10/29/2022 10:04 INDICATION: Laminectomy TECHNIQUE: 2 lateral fluoroscopic images of the lower lumbar spine were obtained during procedure per formed by Dr. Barillas. Radiologist was not present for the imaging or procedure. The amount of fluoro scopy time used during this procedure was 0.1 minutes. COMPARISON: Lumbar spine MR dated 09/17/2022 FINDINGS: Mild lower lumbar spondylosis with relatively preserved disc heights but small degenerative endplate osteophytes. Lap sponge, soft tissue retractors and a metallic probe project over the right L4 and L5 spinous processes and surrounding soft tissues. IMPRESSION: 1. Fluoroscopy utilized during neurosurgical procedure at the lower lumbar spine. See procedure note for further detail. Reviewed, dictated and finalized at location A. IMPRESSION: 1. Fluoroscopy utilized during neurosurgical procedure at the lower lumbar spin e. See procedure note for further detail.
[2022-10-29] MEDS: LACTATED RINGERS 1,000 ML 30 ML IV CONT ×2 (06:45→09:52)
--- NOTE | 2022-10-29 07:13 | PM.IMHP ---
H&P: HPI History of Present Illness Date/Time: 10/29/22 07:13 Chief Complaint: Right leg pain Narrative: Mr. Valdez is a 61-year-old male with no significant medical history who presents for evaluation of right leg pain.? About 3 months ago, he spontaneously started having back pain radiating down the back in after aspect of his right leg into the lateral aspect of his foot.? This is constant in nature and worsens consistently with standing and walking.? He has some pain into the left buttock but no pain down the left leg. he denies any paresthesias in his legs, bowel or bladder changes, or milana weakness.? He has stopped using the ladders at work because he is afraid that his right leg might not support his weight.? He underwent a full course of physical therapy without improvement.? He also had acupuncture as well as 2 epidural steroid injections at L4-5.? The 1st injection was in June through a right transforaminal approach, and the 2nd injection was in the midline at L4-5 in mid July.? These have provided some mild relief in that he is able to sit and lie down without extreme discomfort. ? 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 He denies any other significant medical issues. From 09/25: ? Since his last visit, he has had no changes in the symptoms.? He is unable to get another epidural steroid injection until the end of next month for insurance reasons.? He reminds me that he has fairly minimal back symptoms and really only has right leg pain radiating into the top and side of the foot.? This significantly worsens with being upright and walking. Review of Systems Review of Systems: All systems reviewed & are unremarkable except as noted in HPI and below PMFSH Past Medical History Medical History Anxiety GERD (gastroesophageal reflux disease) Hypercholesteremia Kidney stone Low testosterone in male Surgical History Surgical History Hx of cholecystectomy Family History Family History Father Family history of mental disorder Grandparent Cerebrovascular accident Other Family history of cardiovascular disease Family history of malignant neoplasm Social History Social History (Updated 09/11/22 @ 09:55 by Lindsay Courtney MA) Social History: Sam is very confident filling out medical forms. In the last 12 months he has not received any assistance from an organization or program. 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 He is not . His elderly parents live with him but are relatively healthy. He drinks alcohol only in moderation. He denies any tobacco or illicit substance use. Smoking status: Never smoker Second hand tobacco smoke exposure: No Alcohol intake: current Drinks per week: 1 Substance use: never Lack of Transportation: No Lack of Food: Never True Current Housing: I Have Housing Concerned About Future Housing: No Difficulty Paying Gas/Electric Bills: No Difficulty Paying for Meds: No Currently Unemployed: No Education: Bachelor's Degree Difficulty w/ Childcare or Family Care: No Living arrangements: with family Occupation/Education: occupation Gender identity (if verbalized by the patient): Male Spiritual care concerns: No Meds Home Medications and Allergies Home Medications Medication Instructions Recorded Confirmed Type dorzolamide 22.3 mg-timolol 6.8 1 drp EACH EYE BID 05/19/20 10/21/22 History mg/mL eye drops fenofibrate 160 mg tablet See Rx Instructions .Route 05/19/22 10/21/22 Rx .COMPLEX #90 tabs escitalopram oxalate 10 mg tablet 10 mg PO HS #90 tabs 08/12/22 10/21/22 Rx levothyroxine 75 mcg tablet 75 mcg PO DAILY #90 tabs 08/12/22 10/21/22 Rx pravastatin 40 mg tablet 40 mg PO HS #90 tabs 08/12/22 10/21/22 Rx Allergies Allergy/
--- NOTE | 2022-10-29 07:14 | WPDHPUPDATE1 ---
History and Physical Update Update Date/Time: 10/29/22 07:14 History and Physical has been reviewed, including an updated exam of the patient. There are NO changes in the patient's condition. Risks, benefits, and alternatives have been discussed and questions answered. Patient agrees to proceed with procedure.
[2022-10-29] MEDS: ceFAZolin 2 GM/D5W 50 ML 2 GM/50 ML BAG IVPB ×2 (07:30→14:50)
[2022-10-29] MEDS: BUPIVACAINE/EPINEPHRINE 0.5% 10 ML VIAL INFILTRATE (08:05)
--- NOTE | 2022-10-29 09:46 | PM.OP ---
Procedure Note - Brief Procedure Note - Brief Date of procedure: 10/29/22 lumbar stenosis with neurogenic claudication Surgeon: Carolin Barillas MD Anesthesia: GETA and local Findings: Successful L4-5 laminectomy and right L5-S1 hemilam. No complications Estimated blood loss (mL): 50 Drains: Yes Packing: No Pathology: None sent Complications: None Condition: Stable Disposition: PACU
--- NOTE | 2022-10-29 10:01 | W.PM.PROC2 ---
Procedure Note - Detailed Date of Procedure 10/29/22 Pre-op Diagnosis Lumbar stenosis with neurogenic claudication Lumbar radiculopathy Post-op Diagnosis Same Procedure Performed 1. L4-5 laminectomy 2. Right L5-S1 hemilaminectomy and foraminotomy 3. Use of C-arm for fluoroscopy Surgeon Carolin Barillas MD Business Director Shannon Anesthesia General and Local Indications Mr. Valdez is a 61-year-old male with 6 month history of constant right leg pain radiating into the top and lateral aspect of his right foot which worsens with standing and walking.? He has had minimal back pain.? He has had physical therapy, acupuncture, and 2 epidural steroid injections without any significant benefit.? He is neurologically intact on physical exam.? His recent MRI lumbar spine shows severe stenosis at L4-5 as well as lateral recess stenosis on the right at L5-S1.? Given that he has failed multiple conservative measures, I have offered him surgery in the form of laminectomy at L4-5 and right L5-S1 scott laminectomy and foraminotomy. We discussed the risks in detail including bleeding, pain, infection, CSF leak, nerve damage, failure to relieve symptoms, weakness, paralysis, coma, stroke, and . The patient provided written informed consent to proceed. Description of Procedure The patient was brought to the operating room, and general anesthesia was induced. The patient was placed prone on the Vito frame, and all pressure points were padded. Compression devices were placed on the patient's calves. The skin was cleaned with alcohol. The C-arm was brought onto the field to localize the appropriate disc space and assist with incisional planning. The area was prepped and draped in usual sterile fashion. A time out was conducted, and pre-operative antibiotics were administered. Local anesthesia was injected into the planned incision. A midline skin incision was made with a 10-blade scalpel, and dissection was carried down with the monopolar cautery to open the fascia. Once the spinous processes were located, a subperiosteal dissection was performed to expose the laminae bilaterally. A self-retaining retractor was placed. The C-arm was brought in to confirm the L4-5 level. The spinous process was removed with a Leksell. The high-speed drill was used to thin the lamina bilaterally. A curved currette was then used to separate the ligamentum flavum from the overlying bone which was removed with a kerrison. The ligamentum flavum was elevated and removed with the Kerrison. The Kerrison was then passed into the foraminae to ensure they were open. Next, we focused on the right L5-S1 hemilaminectomy. The right-sided lamina was thinned with the high-speed drill to expose the ligamentum flavum. This was from the bone which was removed with Kerrison rongeurs. The ligamentum flavum was elevated and removed. A currette was used to verify the nerves were well decompressed. Epidural hemostasis was achieved with Surgiflo and cottonoid patties. A Hemovac drain was placed and tunneled inferiorly. Hemostasis was ensured, and the area was copiously irrigated. No evidence of CSF leak was noted. The muscle was loosely approximated with 0-Vicryl. The fascia was closed with 0-Vicryl in an interrupted fashion. The soft tissue was again copiously irrigated. The dermis was closed with 2-0 and 3-0 interrupted Vicryl. The skin was closed with 3-0 simple running nylon. The drain was secured with a nylon as well. Sterile dressings were applied. The patient was returned supine on the stretcher, extubated, and transferred to PACU without incident. CPT codes: 97836, 78770 Estimated Blood Loss -50.0 Drains Yes Packing No Pathology None sent Complications None Condition Stable Disposition PACU [facility] Billing Surgery - Charge Forward: Surgery Billing
--- NOTE | 2022-10-29 10:13 | SUR.PHASEI ---
1013 - dr. collins at bedside assessing pt.
[2022-10-29] MEDS: fentaNYL CITRATE INJ (*CRX) 100 MCG/2 ML VIAL 25 MCG IV PUSH ×2 (10:31→10:35)
--- NOTE | 2022-10-29 11:22 | ADMGEN ---
This patient, Sam Valdez, was admitted to Medical Room 340-01. Patient/family oriented to hospital policies and general routines including ID bracelet, bed and alarms, visiting hours, pain management, procedures, bathroom and other care routines, personal items, smoking policy, room service/diet, and visiting hours. Information on how to activate the Rapid Response Team has been discussed. Patient/Family are encouraged to report perceived risks to care and to ask questions if they do not understand what they are told or what they should do.
--- NOTE | 2022-10-29 17:38 | WPDNEUROSGPN ---
Progress Note: A&P Assessment and Plan (1) Lumbar stenosis with neurogenic claudication: Code(s): M48.062 - Spinal stenosis, lumbar region with neurogenic claudication Status: Acute (2) Lumbar radiculopathy, right: Code(s): M54.16 - Radiculopathy, lumbar region Status: Acute (3) Status post lumbar laminectomy: Code(s): Z98.890 - Other specified postprocedural states Status: Acute Plan s/p L4-5 laminectomy, right L5-S1 hemilaminectomy on 10/29 -Drain removed at bedside -Restrictions reviewed with patient -Discharge home this evening -Return to clinic in 2 weeks for suture removal Subjective Date/time seen: 10/29/22 17:38 Interval history: Mr. Valdez is doing very well since surgery without significant back pain. His right leg pain has resolved. He has ambulated in the halls and voided without difficulty. He would like to go home. Review of Systems Review of Systems: All systems reviewed & are unremarkable except as noted in HPI and below Exam Narrative: AOx4 Dressing c/d/i Full strength in lower extremities Sensation intact Objective Data Vital Signs Vital Signs: Vital Signs - 24 hr 10/29/22 07:14 10/29/22 09:52 10/29/22 10:00 Temperature 97.6 F 97.8 F Pulse Rate 62 86 98 Respiratory Rate 18 12 12 Blood Pressure 118/77 149/75 H 134/66 Pulse Oximetry 99 98 98 Oxygen Delivery Room Air Simple Face Mask Simple Face Mask Oxygen Flow Rate 8 8 10/29/22 10:15 10/29/22 10:30 10/29/22 10:45 Temperature Pulse Rate 86 81 70 Respiratory Rate 20 12 12 Blood Pressure 149/84 H 134/74 126/84 Pulse Oximetry 98 94 98 Oxygen Delivery Simple Face Mask Room Air Nasal Cannula Oxygen Flow Rate 8 2 10/29/22 10:59 10/29/22 11:20 10/29/22 11:35 Temperature 98.2 F 98.0 F Pulse Rate 76 68 70 Respiratory Rate 14 14 14 Blood Pressure 118/76 121/74 126/79 Pulse Oximetry 98 97 96 Oxygen Delivery Nasal Cannula Oxygen Flow Rate 2 10/29/22 12:03 10/29/22 12:05 10/29/22 12:05 Temperature Pulse Rate Respiratory Rate Blood Pressure Pulse Oximetry 97 96 96 Oxygen Delivery Nasal Cannula Nasal Cannula Room Air Oxygen Flow Rate 2 1 10/29/22 12:05 10/29/22 14:05 Temperature 98.0 F 98.5 F Pulse Rate 68 87 Respiratory Rate 14 14 Blood Pressure 116/70 115/76 Pulse Oximetry 95 95 Oxygen Delivery Oxygen Flow Rate Intake/Output Intake/Output: Intake & Output 10/26/22 10/27/22 10/28/22 10/29/22 23:59 23:59 23:59 23:59 Intake Total 290 Balance 290 Meds/Results Medications: Active Medications Generic Name Dose Route Start Last Admin Trade Name Freq PRN Reason Stop Dose Admin Acetaminophen 1,000 mg 10/29/22 09:54 Acetaminophen 500 Mg Tablet PO Q6H PRN Mild Pain (1-3) Al Hydrox/Mg Hydrox/Simethicone 20 ml 10/29/22 09:54 Mag Hydrox/Al Hydrox/Simeth 30 Ml Udc PO Q4H PRN Indigestion/Heartburn Bisacodyl 10 mg 10/29/22 09:54 Bisacodyl 10 Mg Suppository RECTAL DAILY PRN Constipation Cyclobenzaprine HCl 10 mg 10/29/22 09:54 Cyclobenzaprine Hcl 10 Mg Tablet PO TID PRN Muscle Spasms Docusate Sodium 100 mg 10/29/22 21:00 Docusate Sodium 100 Mg Capsule PO Q12HR [facility] Dorzolamide/Timolol 1 drop 10/29/22 21:00 Dorzolamide/Timolol Ophth Pricilla 10 Ml Bottle EACH EYE Q12HR [facility] Escitalopram Oxalate 10 mg 10/29/22 21:00 Escitalopram Oxalate 10 Mg Tablet PO HS [facility] Cefazolin Sodium 2 gm in 50 mls @ 100 mls/hr 10/29/22 14:00 10/29/22 14:50 Ancef 2 Gm/D5w 50 Ml IVPB 100 mls/hr Q8HR [facility] Administration Levothyroxine Sodium 75 mcg 10/30/22 06:30 Levothyroxine Sodium 75 Mcg Tablet PO DAILY@0630 [facility] Ondansetron HCl 4 mg 10/29/22 09:54 Ondansetron Inj 4 Mg/2 Ml Vial IV PUSH Q8H PRN Nausea And Vomiting Oxycodone HCl 5 mg 10/29/22 09:54 Oxycodone Hcl (*Crx) 5 Mg Tab Ir PO Q6H PRN Pain Rated 4-6
--- NOTE | 2022-11-06 17:09 | PM.DS ---
DS: Admitting Diagnosis Discharge Date 10/29/22 Admitting Diagnosis Lumbar stenosis with neurogenic claudication DS: Discharge Diagnosis Discharge Diagnosis Plan s/p L4-5 laminectomy, right L5-S1 hemilaminectomy on 10/29 -Drain removed at bedside -Restrictions reviewed with patient -Discharge home this evening -Return to clinic in 2 weeks for suture removal DS: Summary Hospital Course Hospital Course: Mr. Valdez presented on 10/29 for surgery. Please see the op note for more details. He was transferred to the floor post-op. Mr. Valdez is doing very well since surgery without significant back pain. His right leg pain has resolved. He has ambulated in the halls and voided without difficulty. He would like to go home Status at Discharge Functional status at discharge: independent ambulation Time Spent with Patient Time attestation: Total time spent providing and/or coordinating discharge services: Time spent: Less than 30 minutes Exam Narrative: AOx4 Dressing c/d/i Full strength in lower extremities Sensation intact Discharge Plan Discharge Attending physician on discharge: Carolin Barillas Consulting providers: Sam Colunga Paul Discharging Clinician: Carolin Barillas Patient Disposition: Home, Self-Care Activity: other - see discharge instructions Diet: as tolerated Wound Care Instructions: follow printed instructions Discharge Instructions: Discharge Instructions Procedure: Lumbar laminectomy Your doctor has partially removed one or more lamina from your back (lumbar spine), to remove pressure from the nerve roots. Here are some instructions to follow upon discharge from the hospital to help in your recovery. Wound Care: You may shower and get your incision wet starting on post-operative day 2 (Thursday, October 31). You may use soap and water to clean your incision. Lightly dab the incision dry. Do not apply any ointments, creams, or lotions to the incision. Do not take baths or sit in a hot tub or pool for at least 4 weeks after surgery or until approved by your doctor. If you have stitches in place, these will be removed at your first post-operative appointment. Activity: Until released by your doctor, you should not return to work. You should rest at home and let your body heal. Taking short walks is encouraged, but avoid strenuous exercise. Do not jog, run, bicycle, lift weights, or participate in any other exercises unless specifically allowed by your doctor. Most importantly, avoid lifting objects heavier than about 10 lbs (or carton of milk) as this places a strain on your back. Avoid twisting and bending motions. Avoid prolonged sitting. Where possible, avoid household activities that involve lifting and/or bending such as laundry, grocery shopping, and childcare. Try to arrange for help from friends and family for these activities while your back heals. You should not drive for a few days and must be off narcotic pain medications prior to driving. DO NOT SMOKE TOBACCO. Smoking has been proven to interfere with the normal healing of the bones in your back. Smoking will dramatically reduce the success rate of your surgery. Your doctor can prescribe a patch to help you stop smoking if you would like. Diet: You can return to your usual diet, unless instructed otherwise by your doctor. Medications: You should resume taking all of your normal medications, unless instructed otherwise by your doctor. If you have questions about your normal medications (those prescribed for high blood pressure, for example), call your family doctor or receiver. You will be given a prescription for pain medications and possibly a laxative, as pain medications can cause constipation. Take the pain medicines as instructed. Try Tylenol first for pain to see if this will adequately relieve your pain; if not, take the oxycodone as prescribed. You may take up to 1000mg of
== END 2022-10-29 18:01 | disposition home or self-care (01) ==
LOC: ANH3MED 11:04
PROVIDERS: Admitting Provider Neurological Surgery; PCP Physician Assistant; Visit Provider Neurological Surgery
PROC: (CPT 63030; principal; 2022-10-29 07:30)
DX: M48.062 Spinal stenosis, lumbar region with neurogenic claudication (principal); M54.16 Radiculopathy, lumbar region; F41.9 Anxiety disorder, unspecified; K21.9 Gastro-esophageal reflux disease without esophagitis; E29.1 Testicular hypofunction; Z87.442 Personal history of urinary calculi; F10.90 Alcohol use, unspecified, uncomplicated; Z79.899 Other long term (current) drug therapy
CPT/HCPCS: 63047; 63030; 99199; A9270; G0378; G0379; J0330; J0690; J1100; J1170; J2250; J2405; J2704; J2710; J3010; J7120

== ENCOUNTER 2023-04-30 13:29 | Emergency (ER) | payer BC, SELFPAY ==
[2023-04-30 13:36] VITALS: BP 108/63; PULSE 106; RESP 18; TEMP 37; O2SAT 97
--- NOTE | 2023-04-30 13:37 | ED.GENADULT ---
HPI - General Adult General Chief complaint: Upper Respiratory Infection Stated complaint: Cough and Fever Source: patient, RN notes reviewed and old records reviewed Mode of arrival: ambulatory Limitations: no limitations History of Present Illness HPI narrative: 62-year-old male patient presents to [facility] with complaint of cough, congestion, fever, chills, body aches that started last p.m.. Patient states had fever last night but did not check. Related Data Home Medications Medication Instructions Recorded Confirmed dorzolamide 22.3 mg-timolol 6.8 1 drp EACH EYE BID 05/19/20 10/29/22 mg/mL eye drops Allergies Allergy/AdvReac Type Severity Reaction Status Date / Time No Known Allergies Allergy Verified 02/12/23 09:32 Review of Systems Constitutional: Constitutional: Reports no additional constitutional complaints, Reports body ache(s), Reports chills, Denies fatigue, Reports fever(s) and Denies headache(s) Eyes: Eyes: Reports no additional eye complaints and Denies blurry vision ENT: Reports system reviewed and no additional complaints, except as documented, Denies vertigo, Denies dizziness, Denies ear discharge, Denies otalgia, Denies facial pain, Denies headache(s), Reports nasal congestion, Reports nasal discharge, Denies sinus pain, Reports sinus pressure and Denies sore throat Cardiovascular: Cardiovascular: Reports no additional cardiovascular complaints, Denies chest pain, Denies chest pain at rest, Denies rapid heart rate and Denies dyspnea Respiratory: Respiratory: Reports no additional respiratory complaints, Reports chest congestion, Reports cough, Denies pain on inspiration, Denies pain with cough and Denies dyspnea Gastrointestinal: Gastrointestinal: Denies abdominal pain, Denies diarrhea, Denies nausea and Denies vomiting Musculoskeletal: Musculoskeletal: Reports myalgias Integumentary/Breasts: Skin/Breast: Denies rash Neurologic: Reports system reviewed and no additional complaints, except as documented, Denies vertigo, Denies dizziness and Reports headache(s) Endocrine: Endocrine: Denies fatigue PMFSH Past Medical History Medical History Anxiety GERD (gastroesophageal reflux disease) Hypercholesteremia Kidney stone Low testosterone in male Surgical History Surgical History Hx of cholecystectomy Family History Family History Father Family history of mental disorder Grandparent Cerebrovascular accident Other Family history of cardiovascular disease Family history of malignant neoplasm Social History Social History Social History: Sam is very confident filling out medical forms. In the last 12 months he has not received any assistance from an organization or program. 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 He is not . His elderly parents live with him but are relatively healthy. He drinks alcohol only in moderation. He denies any tobacco or illicit substance use. Smoking status: Never smoker Second hand tobacco smoke exposure: No Alcohol intake: never Drinks per week: 1 Substance use: never Substance use type: does not use Lack of Transportation: No Lack of Food: Never True Current Housing: I Have Housing Concerned About Future Housing: No Difficulty Paying Gas/Electric Bills: No Difficulty Paying for Meds: No Currently Unemployed: No Education: Don't Know Difficulty w/ Childcare or Family Care: No Living arrangements: with family Occupation/Education: occupation Gender identity (if verbalized by the patient): Male Spiritual care concerns: No Comments At the time of my signature, I reviewed and agree with the nursing past medical, surgical, social, and family history. There is no
== END 2023-04-30 13:59 | disposition home or self-care (01) ==
PROVIDERS: Emergency Provider Registered Nurse; PCP Physician Assistant
DX: J06.9 Acute upper respiratory infection, unspecified (principal); Z20.822 Contact with and (suspected) exposure to COVID-19; K21.9 Gastro-esophageal reflux disease without esophagitis; E78.00 Pure hypercholesterolemia, unspecified
CPT/HCPCS: 87426; 87804; 99213; G0463

== ENCOUNTER 2023-07-13 13:40 | Outpatient (CLI) | payer BC, SELFPAY ==
--- NOTE | ~2023-07-13 | XR_ITS ---
EXAMINATION: XR shoulder RT min 2V DATE: 07/13/2023 13:52 INDICATION: Right shoulder pain. TECHNIQUE: 4 views of right shoulder were obtained. COMPARISON: None. FINDINGS: Bone alignment is normal. No fracture. Glenohumeral joint is normal. There is mild acromioc lavicular joint osteoarthritis. IMPRESSION: 1. Mild right acromioclavicular joint osteoarthritis. Reviewed, dictated and finalized at location E.
== END 2023-07-13 13:41 | disposition home or self-care (01) ==
LOC: ANHIMG 13:40
PROVIDERS: PCP Physician Assistant; Visit Provider Physician Assistant
DX: M19.011 Primary osteoarthritis, right shoulder (principal)
CPT/HCPCS: 73030

== ENCOUNTER 2023-11-05 10:54 | Outpatient (CLI) | payer SELFPAY ==
--- NOTE | ~2023-11-05 | MR_ITS ---
MRI of the lumbar spine Clinical History: Spinal stenosis Technique: Axial T2-weighted images, and sagittal T1-weighted, T2-weighted, and T2 fat-sat images wer e acquired. COMPARISON: 09/17/2022 Findings: There is no fracture or subluxation of the lumbar spine. Vertebral bodies maintain normal h eight and alignment. No bone marrow signal abnormality seen. At L1-L2 and L2-L3, there is no disc bulge or herniation. There is moderate facet arthropathy results . No spinal canal stenosis or neural foraminal narrowing at these levels. L3-L4, there is minimal disc bulge and moderate facet arthropathy. No central canal stenosis or neura l foraminal narrowing. At L4-L5, there is diffuse disc bulge with severe facet arthropathy. There is a superimposed disc ext rusion extending inferiorly the right paracentral region, which may impinge the descending right-side d L5-S1 level nerve root. There is no milana central canal stenosis at this level. There is mild to mo derate left neural foraminal narrowing. There is minimal right neural foraminal narrowing. At L5-S1, there is minimal disc bulge and severe facet arthropathy. No central canal stenosis or neur al foraminal narrowing. Paravertebral soft tissues are unremarkable. Impression: Right paracentral disc extrusion at L4-L5 extending inferiorly, which may impinge the descending righ t-sided L5-S1 level nerve root. Additional degenerative changes, overall mild in degree, as detailed above. Reviewed, dictated and finalized at [facility]. Impression: Right paracentral disc extrusion at L4-L5 extending inferiorly, which may impin ge the descending right-sided L5-S1 level nerve root. Additional degenerative changes, overall mild in degree, as detailed above.
== END 2023-11-05 10:55 ==
PROVIDERS: PCP Neurological Surgery; Visit Provider Neurological Surgery
DX: M48.062 Spinal stenosis, lumbar region with neurogenic claudication (principal); M51.26 Other intervertebral disc displacement, lumbar region
CPT/HCPCS: 72148

== ENCOUNTER 2025-02-20 09:00 | Outpatient (CLI) | payer MEDICARE, SELFPAY ==
--- OUTSIDE RECORDS SUMMARY | 2025-02-20 09:53 | XMS_ITS | Clinical Summary ---
Author Organization [facility] Address [address] [place] [address] Care Team Providers Care Senior Information Systems Architect Name Role Phone George Saenz Primary Care Provider Allergies No known active allergies Medications pravastatin (PRAVACHOL) 40 mg tablet 7 Active escitalopram (LEXAPRO) 10 mg tablet 7 Active testosterone cypionate (DEPO-TESTOTERON E) 200 mg/mL injection INJECT 1ML INTO MUSCLE EVERY OTHER WEEK 0 Active doxycycline monohydrate (MONODOX) 100 mg capsule Take 100 mg by mouth daily 0 Active fenofibrate (TRIGLIDE) 160 mg tablet Take 160 mg by mouth daily Active tamsulosin (FLOMAX) 0.4 mg extended release capsule 0.4 mg daily Active dorzolamide-shahid loL (COSOPT) 22.3-6.8 mg/mL ophthalmic solution INT 1 GTT IN OU BID UTD 0 Active fluorouraciL (EFUDEX) 5 % cream 1. Apply a thin coat of the cream twice a day to L arm at biopsy site for 6 weeks. 2. Then apply Vaseline /Aquaphore 10-20 minute on top of the area treated with Efudex. Do not wash off the Efudex that was applied. 3. Wash area in the morning and reapply. 0 Active metroNIDAZOLE (METROGEL) 1 % gel APPLY TO AFFECTED AREA EVERY DAY 0 Active acetaminophen (TYLENOL) 500 mg tabletIndication s:Back Pain Take 2 tablets (1,000 mg total) by mouth every 8 (eight) hours as needed for pain 0 Active ibuprofen (ibuprofen) 200 mg tab/capIndicatio ns:Anti-inflamma tory Take 2 tablet/capsul e (400 mg total) by mouth every 4 (four) hours as needed for pain 0 Active Active Problems No known active problems Surgical History Surgery Date Site/Laterality Comments CHOLECYSTECTOMY Medical History Medical History Date Comments Anxiety Rosacea High cholesterol Fatigue Arthritis Family History Medical History Relation Name Comments Anxiety disorder Father Relation Name Status Comments Father Social History Tobacco Use Types Packs/Day Years Used Date Smoking Tobacco: Never Smokeless Tobacco: Never Alcohol Use Standard Drinks/Week Comments Defer 0 (1 standard drink = 0.6 oz pur e alcohol) Personal Safety Answer Date Recorded Getting School Help Needed Not on file 06/13 Sex and Gender Information Value Date Recorded Sex Assigned at Not on file 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 Gender Identity Not on file Sexual Orientation Not on file Last Filed Vital Signs Vital Sign Reading Time Taken Comments Blood Pressure 116/66 10/28/2019 9:20 AM CDT Pulse 71 10/28/2019 9:20 AM CDT Temperature 36.4 C (97.5 F) 10/28/2019 9:20 AM CDT Respiratory Rate 16 10/28/2019 9:20 AM CDT Oxygen Saturation 98% 10/28/2019 9:20 AM CDT Inhaled Oxygen Concentration - - Weight 91.2 kg (201 lb) 10/28/2019 9:20 AM CDT Height 182.9 cm (6') 10/28/2019 9:20 AM CDT Body Mass Index 27.26 10/28/2019 9:20 AM CDT Plan of Treatment Not on file Goals Goal Patient Goal Type Associated Problems Recent Progress Patient-Stated? Author CCM Chronic Pain Care Plan Chronic Care Management No Karina Bird, RN Note: Problem: Chronic Pain Goals: 1. Minimize further functional decline 2. Maximize quality of life 3. Control pain Strategies: - Activity/exercise program recommendation - Conservative stepwise pain medicine strategy with multi-disciplinary approach - Recommend healthy lifestyle strategies and compensatory methods as needed Insurance [facility] NAVIN DOWNEY [id number] BL CHOICE PRF PPO [place] Care Teams Senior Information Systems Architect Relationship Specialty Start Date End Date George Saenz PA [address] [facility] [address] [place] [address] PCP - General Physician Reproductive Endocrinologist 05/13/19
--- OUTSIDE RECORDS SUMMARY | 2025-02-20 09:53 | XMS_ITS | Clinical Summary ---
Author Organization [facility] Address [address] Meyer: Wesley Prelude ADT [place] [address] Care Team Providers Care Client Server Developer Name Role Phone Unavailable Primary Care Provider Unavailabl e Medications ALPRAZolam (XANAX) 1 mg tablet Take 1 Tablet (1 mg) by mouth daily. 4 Tablet 02/24/2022 3:02 PM JACKSCREW MAN 2 Active ALPRAZolam (XANAX) 1 mg tablet Take 1 Tablet (1 mg) by mouth daily. 4 Tablet 06/16/2022 3:32 PM CDT 3 Active cyclobenzaprine (FLEXERIL) 10 mg tablet Take 1 Tablet (10 mg) by mouth nightly as needed for muscle spasms 30 Tablet 06/16/2022 3:32 PM CDT 3 Active methylPREDNISolo ne (MEDROL DOSPACK) 4 mg Tablets, Dose Pack TAKE BY MOUTH DIRECTED ON PACKAGE 21 Each 06/16/2022 3:32 PM CDT 3 Active clotrimazole-bet amethasone (LOTRISONE) 1-0.05 % Cream APPLY TOPICALLY TWICE DAILY FOR 2 WEEKS DIRECTED 45 Gram 06/16/2022 3:32 PM CDT 3 Active HYDROcodone-acet aminophen (NORCO) 5-325 mg tablet Take 1 Tablet by mouth 2 times daily as needed. Max Daily Amount: 2 Tablets 20 Tablet 06/16/2022 3:32 PM CDT 3 Active omeprazole (PriLOSEC) 20 mg Capsule, Delayed Release(E.C.) Take 1 Capsule (20 mg) by mouth daily for heartburn 30 Capsule 5 09/15/2022 4:09 PM CDT 3 Active etodolac (LODINE) 400 mg tablet Take 1 Tablet (400 mg) by mouth 2 times daily with meals. 60 Tablet 3 10/11/2022 10:03 AM CDT 3 Active diazePAM (VALIUM) 5 mg tablet Take 1 tablet by mouth 1 hour prior to MRI. Take the second tablet immediately prior to MRI. 2 Tablet 09/15/2022 4:09 PM CDT 3 Active tadalafil (CIALIS) 5 mg tablet Take 1 Tablet (5 mg) by mouth 1 time daily as needed for sexual activity. 30 Tablet 8 06/12/2023 4:55 PM CDT 3 Active cyclobenzaprine (FLEXERIL) 10 mg tablet Take 1 Tablet (10 mg) by mouth 3 times daily as needed for muscle spasms. 30 Tablet 10/29/2022 12:37 PM CDT 3 Active oxyCODONE (ROXICODONE) 5 mg tablet Take 1 Tablet (5 mg) by mouth every 6 hours as needed for pain ( Rated 4-6). 28 Tablet 10/29/2022 12:37 PM CDT 3 Active sennosides-docus ate sodium (SENNA-S) 8.6-50 mg tablet Take 1 Tablet by mouth 2 times daily for constipation. 14 Tablet 10/29/2022 12:37 PM CDT 3 Active ALPRAZolam (XANAX) 1 mg tablet Take 1 Tablet (1 mg) by mouth daily. 4 Tablet 02/24/2023 4:22 PM JACKSCREW MAN 3 Active clindamycin phosphate (CLEOCIN) 1 % Lotion Apply daily to pimple bumps on scalp and trunk. 60 mL 2 06/29/2023 11:54 AM CDT 3 Active levothyroxine 75 mcg tablet Take 1 Tablet (75 mcg) by mouth daily. 90 Tablet 1 08/10/2023 1:19 PM CDT 4 Active fluticasone furoate-vilanter oL (BREO ELLIPTA) 100-25 mcg/dose Disk with Device Inhale 1 puff by mouth once daily. 60 Each 05/25/2023 5:00 PM JACKSCREW MAN 4 Active HYDROcodone-acet aminophen (NORCO) 5-325 mg tablet Take 1 tablet orally every 8 hours As Needed for pain 45 Tablet 07/15/2023 11:14 AM CDT 4 Active escitalopram oxalate (LEXAPRO) 10 mg tablet Take 1 Tablet (10 mg) by mouth daily at bedtime. 90 Tablet 08/10/2023 1:19 PM CDT 4 Active pravastatin (PRAVACHOL) 40 mg tablet Take 1 Tablet (40 mg) by mouth daily at bedtime. 90 Tablet 08/10/2023 1:19 PM CDT 4 Active dorzolamide-shahid loL (COSOPT) 22.3-6.8 mg/mL solution INSTILL 1 DROP IN BOTH EYES TWICE DAILY DIRECTED 10 mL 1 11/05/2023 1:01 PM CDT 4 Active clindamycin phosphate (CLEOCIN) 1 % Lotion Apply to pimple bumps on scalp and trunk daily. 60 mL 2 09/10/2023 2:37 PM CDT 4 Active cyclobenzaprine (FLEXERIL) 10 mg tablet Take 1 Tablet (10 mg) by mouth 3 times daily as needed for muscle spasms 30 Tablet 1 10/16/2023 9:31 AM CDT 4 Active methylPREDNISolo ne (MEDROL DOSPACK) 4 mg Tablets, Dose Pack Take as directed on package 21 Each 10/16/2023 9:31 AM CDT 4 Active tamsulosin (FLOMAX) 0.4 mg capsule Take 1 Capsule (0.4 mg) by mouth daily. 90 Capsule 1 02/03/2024 12:40 PM JACKSCREW MAN 4 Active dorzolamide-shahid loL (COSOPT) 22.3-6.8 mg/mL solution Instill one drop into both eyes twice a day. 10 mL 12 10/28/2024 4:44 PM CDT 4 Active ALPRAZolam (XANAX) 1 mg tablet Take 1 Tablet (1 mg) by mouth daily. 4 Tablet 1 02/17/2024 1:19 PM JACKSCREW MAN 4 Active ketorolac tromethamine (ACULAR) 0.5 % solution ADMINISTER 1 DROP IN EYE 3 TIMES DAILY STARTING 2 DAYS PRIOR TO SURGERY, CONTINUE FOR 2 WEEKS AFTER. 5 mL 3 03/01/2024 10:57 AM JACKSCREW MAN 4 Active ofloxacin (OCUFLOX) 0.3 % solution ADMINISTER 1 DROP IN EYE 3 TIMES DAILY STARTING 2 DAYS PRIOR TO SURGERY; CONTINUE FOR 1 WEEK AFTER. 5 mL 03/01/2024 10:57 AM JACKSCREW MAN 4 Active prednisoLONE acetate (PRED FORTE) 1 % suspension ADMINSTER 1 DROP IN EYE 3 TIMES DAILY STARTING AFTER SURGERY; CONTINUE FOR 3 WEEKS. 10 mL 3 03/01/2024 10:57 AM JACKSCREW MAN 4 Active methylPREDNISolo ne (MEDROL DOSPACK) 4 mg Tablets, Dose Pack TAKE DIRECTED ON PACKAGE. 21 Each 04/25/2024 4:52 PM JACKSCREW MAN 5 Active escitalopram oxalate (LEXAPRO) 10 mg tablet Take 1 Tablet (10 mg) by mouth daily at bedtime. 90 Tablet 2 10/28/2024 4:44 PM CDT 5 Active codeine-guaiFENe sin (ROBITUSSIN-AC) 10-100 mg/5 mL Liquid Take 5 mL by mouth every 6 hours As Needed for cough 118 mL 06/14/2024 5:02 PM CDT 5 Active codeine-guaiFENe sin (ROBITUSSIN-AC) 10-100 mg/5 mL Liquid Take 5 mL by mouth every 6 hours as needed for cough. 118 mL 07/15/2024 3:07 PM CDT 5 Active fenofibrate (LOFIBRA) 160 mg Tablet TAKE ONE TABLET BY MOUTH ONCE DAILY 90 Tablet 2 10/28/2024 4:44 PM CDT 5 Active levothyroxine 75 mcg tablet Take 1 Tablet (75 mcg) by mouth daily. 90 Tablet 2 10/28/2024 4:44 PM CDT 5 Active pravastatin (PRAVACHOL) 40 mg tablet Take 1 Tablet (40 mg) by mouth daily at bedtime. 90 Tablet 2 10/28/2024 4:44 PM CDT 5 Active tamsulosin (FLOMAX) 0.4 mg capsule Take 1 Capsule (0.4 mg) by mouth daily. 90 Capsule 2 10/28/2024 4:44 PM CDT 5 Active tadalafil (CIALIS) 5 mg tablet Take 1 Tablet (5 mg) by mouth 1 time daily as needed for sexual activity. 30 Tablet 6 12/10/2024 11:40 AM CDT 5 Active ALPRAZolam (XANAX) 1 mg tablet Take 1 Tablet (1 mg) by mouth daily. 4 Tablet 1 5 Active Social History Tobacco Use Types Packs/Day Years Used Date Smoking Tobacco: Never Assessed Sex and Gender Information Value Date Recorded Sex Assigned at Not on file Legal Sex Male 3:27 PM CDT Gender Identity Not on file Sexual Orientation Not on file Plan of Treatment Health Maintenance Due Date Last Done Comments DTAP/TDAP/TD VACCINES (1 - Tdap) 12/18/1978 COLORECTAL SCREENING 12/18/2004 Colorectal Cancer Screening 12/18/2004 FIT-DNA Q 3 years 12/18/2004 FIT/FOBT Q 1 year 12/18/2004 Flex Sig/CT Colonography Q 5 years 12/18/2004 PNEUMOCOCCAL VACCINE 50+ YEARS (1 of 1 - PCV) 12/19/19 10 ZOSTER VACCINE (1 of 2) 12/18/2009 INFLUENZA VACCINE (#1) 2024 RSV VACCINE (60+ or ) (1 - 1-dose 75+ series) 12/18/2034 Insurance RX [employer] (INTERNAL) [facility] [employer] RX [employer] RX Member Subscriber Plan / Payer (Ef fective 2024-Present) Name:Sam Valdez Relation to Subscriber:Self Name:Sam Valdez Subscriber ID:Not on file Payer ID:Not on file Group ID:[id number] Type:RX Commercial Address: [place] [address]
--- OUTSIDE RECORDS SUMMARY | 2025-02-20 09:53 | XMS_ITS | Clinical Summary ---
Author Organization [facility] Address [address] [place] [address] Care Team Providers Care Tar Processing Technician Name Role Phone Aaron Jignesh Steve GARZA Primary Care Provider [phone] Source Comments [facility],non-owned Affiliates and Associated Physician Practices is amultiple site organization consisting of ambulatory clinics and hospital sitesin [place], [place], [place]. This disclosure is being madepursuant to the Care Everywhere program and may not contain all information available regarding this patient. Last updated 17.RV ID Allergies No known active allergies Medications * Be aware that medications may not be up to date on this document. Alwaysverify current medications with the patient. escitalopram (LEXAPRO) 10 MG tablet 3 7 Active pravastatin (PRAVACHOL) 40 MG tablet 3 7 Active dorzolamide-bouchra olol (COSOPT) 22.3-6.8 MG/ML ophthalmic solution Instill 1 (one) drop into both eyes 2 times daily Active fenofibrate (LOFIBRA) 160 MG tablet 1 Active levothyroxine (SYNTHROID) 75 MCG tablet Take 1 (one) tablet by mouth once daily 2 Active tamsulosin (Flomax) 0.4 MG capsule 3 Active tadalafil (Cialis) 5 MG tablet 3 Active ALPRAZolam (Xanax) 1 MG tablet 3 Active omeprazole (PriLOSEC) 20 MG capsule 3 Active clindamycin (Cleocin) 1 % lotionIndicatio ns:Other specified follicular disorders Apply to pimple bumps on scalp and trunk daily. 30 day supply. 60 mL 2 4 Active Additional Information Patient not taking.Reported on 12/27/2024 OtherIndication s:Actinic Keratosis Apply to affected areas (scalp + ears, then forearms) twice daily for 4 days. May take 10 days on arms. Reasons: Actinic Keratosis 30 g 2 5 Active Active Problems Problem Noted Date Diagnosed Date Xerosis cutis 02/18/2022 Multiple benign nevi of uppe r extremity, lower extremity, and trunk 10/09/2020 Blepharitis of both eyes with rosacea 07/02/2019 Actinic keratosis 04/29/2017 Melanocytic nevi of trunk 04/29/2017 Seborrheic keratosis 04/29/2017 Lentigines 04/29/2017 History of nonmelanoma skin cancer 01/08/2017 Encounters Date Type Department Care Team Description 12/27/2024 1:20 PM CDT Office Visit [facility] - Dermatology [address] [place] [address], [place] [address] Tiffanie Varner MD Fernandez angioma (Primary Dx); Seborrheic keratoses; Lentigines; Melanocytic nevi of trunk; Actinic keratosis; History of squamous cell carcinoma of skin; History of basal cell carcinoma (BCC) of skin from Last 3 Months Immunizations Immunization Administration Dates Next Due COVID VENITA PRIMARY 18+YR 08/05/2020 Covid Moderna primary monovalent 12+ yr 0.5mL Family History Medical History Relation Name Comments None Known Brother None Known Father None Known Maternal Aunt None Known Maternal Grandfather None Known Maternal Grandmother None Known Maternal Uncle None Known Mother None Known Other None Known Paternal Aunt None Known Paternal Grandfather None Known Paternal Grandmother None Known Paternal Uncle None Known Sister Asthma Neg Hx CVA Neg Hx Cancer - Breast Neg Hx Cancer - Other Neg Hx Cancer - Skin, Melanoma Neg Hx Cancer - Skin, Non Melanoma Neg Hx Eczema Neg Hx Hemophilia Neg Hx Psoriasis Neg Hx Relation Name Status Comments Brother Father Maternal Aunt Maternal Grandfather Maternal Grandmother Maternal Uncle Mother Other Paternal Aunt Paternal Grandfather Paternal Grandmother Paternal Uncle Sister Social History Tobacco Use Types Packs/Day Years Used Date Smoking Tobacco: Never Smokeless Tobacco: Current Chew Tobacco Cessation:Ready to Q uit: Not Asked; Counseling Given: Not Answered Alcohol Use Standard Drinks/Week Comments No 0 (1 standard drink = 0.6 oz pur e alcohol) Sex and Gender Information Value Date Recorded Sex Assigned at Not on file Legal Sex Male 5:25 PM STOPER Gender Identity Not on file Sexual Orientation Not on file Last Filed Vital Signs Vital Sign Reading Time Taken Comments Blood Pressure 109/78 06/24/2018 11:14 AM CDT Pulse 61 06/24/2018 11:14 AM CDT Temperature - - Respiratory Rate - - Oxygen Saturation 98% 06/24/2018 11:14 AM CDT Inhaled Oxygen Concentration - - Weight 88.9 kg (196 lb) 06/24/2018 7:16 AM CDT Height 182.9 cm (6') 06/24/2018 7:16 AM CDT Body Mass Index 26.58 06/24/2018 7:16 AM CDT Plan of Treatment Upcoming Encounters Date Type Department Care Team (Late st Contact Info) Description 07/03/2025 10:00 AM CDT Office Visit [facility] - Hematology/Oncology [address] [place] [address] Tiffanie Varner MD [address] [facility] [place] [id number] Health Maintenance Due Date Last Done Comments COLOGUARD (AGES 45-75) - COL ON CA SCREENING 1959 COLON MONITORING 1959 COLONOSCOPY - COLON CA SCREENING 1959 CT COLONOGRAPHY - COLON CA SCREENING 1959 Colorectal Cancer Screening 1959 FIT - COLON CA SCREENING 1959 FLEX SIG - COLON CA SCREENING 1959 MEDICARE AWV 12 MONTHS 1959 HIV SCREENING 12/18/1974 HEPATITIS C SCREENING 12/14/1977 DTAP/TDAP/TD VACCINES (1 - Tdap) 12/18/1978 PNEUMOCOCCAL VACCINE 50+ (1 of 1 - PCV) 12/18/2009 ZOSTER VACCINE (1 of 2) 12/18/2009 DEPRESSION SCREENING 03/30/2024 COVID-19 VACCINE (2024-2 6 season) 2024 07/22/2021, 03/05/2021, 08/05/2020 INFLUENZA VACCINE (#1) 2024 Respiratory Syncytial Virus (RSV) Vaccine Pt: or over 60 yrs (1 - 1-dose 75+ series) 12/18/2034 HEPATITIS B VACCINE Aged Out No longe r eligible based on patient's age to complete this topic HIB VACCINE Aged Out No longer eligi ble based on patient's age to complete this topic HPV VACCINE Aged Out No longer eligi ble based on patient's age to complete this topic MENINGOCOCCAL (Group B) VACCINE SHARED DECISION-MAKING Aged Out No longer eligible based on patient's age to complete this topic MENINGOCOCCAL GROUPS A/C/Y/W VACCINE Aged Out No longer eligible b ased on patient's age to complete this topic Procedures Procedure Name Priority Date/Time Associated Diagnosis Comments NC DESTROY PREMALIG LESION, 2-14 Routine 12/27/2024 6:58 PM CDT Actinic keratosis NC DESTROY PREMALIG LESION, 1ST LESION Routine 12/27/2024 6:58 PM CDT Actinic keratosis from Last 3 Months Results * NC DESTROY PREMALIG LESION, 1ST LESION, NC DESTROY PREMALIG LESION, 2-14 (12/27/2024 6:58 PM CDT) Narrative Tiffanie Varner MD - 12/27/2024 6:58 PM CDT Tiffanie Varner MD 12/28/2024 11:09 AM Diagnosis and treatment options discussed. Cryotherapy (Liquid Nitrogen) to 5 lesions for 4-6 seconds each. Number of cycles: 1. Wound care reviewed. us Tiffanie Varner MD PROCEDURE/MINOR SURGICAL ORDERA BLES Final Result from Last 3 Months Insurance MEDICARE ANTHEM Care Teams Tar Processing Technician Relationship Specialty Start Date End Date Jignesh Walker DO [address] [place] [address] PCP - General Internal Medicine 03/14/24
[2025-02-20 10:08] LABS: Hematocrit 47.1 % (42.0-52.0); Hemoglobin 15.4 g/dL (14.0-18.0); Immature Granulocyte Percent A 0.2 % (0-0.5); Lymphocytes Absolute Auto 1.48 K/mm3 (0.9-3.2); Mean Corpuscular HGB Conc 32.7 g/dl (32-36); Mean Corpuscular Hemoglobin 29.8 pg (26-34); Mean Corpuscular Volume 91.3 fl (80-100); Nucleated Red Blood Cells Absolute Auto 0.000 K/mm3 (0.0-0.012); Nucleated Red Blood Cells Perc 0.0 % (0.0-0.2); Platelet Count Result 201 k/mm3 (150-375); Red Blood Count 5.16 M/mm3 (4.6-6.20); White Blood Count 5.7 K/mm3 (4.5-10.0)
[2025-02-20 10:27] LABS: Alanine Aminotransferase 33 U/L (6-50); Albumin Level 4.6 g/dL (3.5-5.1); Alkaline Phosphatase 54 U/L (38-126); Anion Gap 11 mmol/L (4-12); Aspartate Amino Transferase 39 U/L (17-59); Bilirubin,Total 0.7 mg/dL (0.2-1.3); Blood Urea Nitrogen 16 mg/dL (9-20); Calcium 9.6 mg/dL (8.4-10.2); Carbon Dioxide 25 mmol/L (22-30); Chloride 104 mmol/L (98-107); Cholesterol 209 mg/dL (0-200); Estimated Glomerular Filt Rate 45; Glucose 101 mg/dL (65-110); HDL Direct 37 mg/dL; Potassium 3.9 mmol/L (3.4-5.0); Sodium 140 mmol/L (137-145); Total Protein 7.8 g/dL (6.3-8.2); Triglycerides 304 mg/dL (<150)
[2025-02-20 10:43] LABS: Free T4 Free Thyroxine 1.12 ng/dL (0.78-2.19)
[2025-02-20 11:03] LABS: Prostate Specific Antigen 1.6 ng/mL (< OR = 4.0); Thyroid Stimulating Hormone 3.300 uIU/mL (0.465-4.680)
== END 2025-02-20 09:01 | disposition home or self-care (01) ==
LOC: ANHLAB 09:05
PROVIDERS: PCP Internal Medicine; Visit Provider Internal Medicine
DX: E03.9 Hypothyroidism, unspecified (principal); E78.1 Pure hyperglyceridemia; F40.243 Fear of flying; N17.9 Acute kidney failure, unspecified; N18.9 Chronic kidney disease, unspecified; Z12.5 Encounter for screening for malignant neoplasm of prostate
CPT/HCPCS: 36415; 80053; 80061; 84153; 84439; 84443; 85025; G0103